=== PATIENT | female | born 1940 ===

== ENCOUNTER 2016-12-28 20:38 | Emergency (ER) | payer MEDICARE, MEDICAID ==
[2016-12-28 20:38] VITALS: BMI 22.6
[2016-12-28 21:44] LABS: BASO % 0.4 % (0.0-2.0); EOS # 0.1 K/uL (0.0-0.7); EOS % 1.2 % (0.0-4.0); HEMATOCRIT 40.8 % (34.0-47.0); LYMPH # 1.8 K/uL (1.0-4.3); LYMPH % 23.6 % (20.0-40.0); MEAN CELL VOLUME 91.6 fL (81.0-99.0); MEAN CORPUSCULAR HEMOGLOBIN 30.9 pg (27.0-31.0); MEAN CORPUSCULAR HGB CONC 33.8 g/dL (33.0-37.0); MEAN PLATELET VOLUME 10.3 fL (7.2-11.7); MONO # 0.4 K/uL (0.0-0.8); MONO % 5.6 % (0.0-10.0); RED CELL DISTRIBUTION WIDTH 13.7 % (11.5-14.5); WHITE BLOOD COUNT 7.8 K/uL (4.8-10.8)
[2016-12-28 21:46] LABS: ALB/GLOB RATIO 1.2 (1.0-2.1); ALKALINE PHOSPHATASE 48 U/L (38-126); ALT/SGPT 27 U/L (9-52); AST/SGOT 36 U/L (14-36); BILIRUBIN,TOTAL 0.6 mg/dL (0.2-1.3); BLOOD UREA NITROGEN 13 mg/dL (7-17); CALCIUM 9.7 mg/dl (8.6-10.4); CARBON DIOXIDE 27 mmol/L (22-30); CHLORIDE 101 mmol/L (98-107); GFR AFRICAN-AMERICAN > 60; GLUCOSE,RANDOM 161 mg/dL (65-105); SODIUM 144 mmol/L (132-148)
[2016-12-28 21:50] LABS: POTASSIUM 5.1 mmol/L (3.6-5.2)
--- NOTE | 2016-12-28 22:21 | C.PDOC ---
History Of Present Illness 76 year old female with a Hx of osteoporosis and recently diagnosed with dementia who presents to the ER with a complaint of heaviness to the left arm, associated with a generalized headache for the last 3 days. Patient state the headache has improved since yesterday; however, she began vomiting today which prompted ER visit. Patient reports she has "liquid" accumulating in her abdomen over the past 5 years, she does not know what it is and has never had it checked out. Denies abdominal pain, chest pain, difficulty breathing, or fever. Time Seen by Provider: 12/28/16 21:58 Chief Complaint (Nursing): Abdominal Pain History Per: Patient History/Exam Limitations: no limitations Onset/Duration Of Symptoms: Days Current Symptoms Are (Timing): Still Present Radiation Of Pain To:: None Associated Symptoms: Vomiting. denies: Fever, Chest Pain Exacerbating Factors: None Alleviating Factors: None Recent travel outside of the [place]: No Abnormal Vaginal Bleeding: No Past Medical History Reviewed: Historical Data, Nursing Documentation, Vital Signs Vital Signs: Last Vital Signs Temp 98.3 F 12/28/16 20:57 Pulse 83 12/28/16 20:57 Resp 20 12/28/16 20:57 BP 187/74 H 12/28/16 20:57 Pulse Ox 98 12/28/16 23:58 - Medical History PMH: HTN, Hypercholesterolemia Surgical History: No Surg Hx Family History: States: Unknown Family Hx - Social History Hx Alcohol Use: No Hx Substance Use: No - Immunization History Hx Tetanus Toxoid Vaccination: No Hx Influenza Vaccination: No Hx Pneumococcal Vaccination: No Review Of Systems Constitutional: Positive for: Weakness. Negative for: Fever Cardiovascular: Negative for: Chest Pain Respiratory: Negative for: Shortness of Breath, Wheezing Gastrointestinal: Negative for: Abdominal Pain Neurological: Positive for: Headache Physical Exam - Physical Exam Appears: Non-toxic, No Acute Distress, Other (Speaking in complete sentences) Skin: Normal Color, Warm, Dry Head: Atraumatic, Normacephalic Eye(s): bilateral: Normal Inspection, PERRL, EOMI Oral Mucosa: Moist Chest: Symmetrical, No Tenderness Cardiovascular: Rhythm Regular, No Murmur Respiratory: Normal Breath Sounds, No Rales, No Rhonchi, No Wheezing Gastrointestinal/Abdominal: Bowel Sounds (Good ), Soft, No Tenderness, Distention (Round, tense with fluid wave) Extremity: Normal ROM (x4) Neurological/Psych: Oriented x3, Normal Speech, Normal Cognition, Normal Motor, Normal Sensation ED Course And Treatment - Laboratory Results Result Diagrams: 12/28/16 21:33 12/28/16 21:33 Lab Interpretation: No Acute Changes O2 Sat by Pulse Oximetry: 98 (Room air) Pulse Ox Interpretation: Normal - Other Rad Obstructive series X-Ray: Interpreted by Me Interpretation: Normal bowel gas pattern with increased stool volume diffusely. No evidence of obstruction or free air. - CT Scan/US CT head Other Rad Studies (CT/US): Read By Radiologist, Radiology Report Reviewed CT/US Interpretation: FINDINGS: Brain: No acute hemorrhage. No significant white matter disease. No cerebral edema. Ageappropriate. atrophic changes. Ventricles: Unremarkable. No ventriculomegaly. Bones/joints: Unremarkable. No acute fracture. Soft tissues: Unremarkable. Sinuses: Unremarkable as visualized. No acute sinusitis. Mastoid air cells: Unremarkable as visualized. No mastoid effusion. IMPRESSION: No acute intracranial pathology is appreciated. Progress Note: Head CT, EKG, abdominal x-ray, and urinalysis ordered. Reevaluation Time: 00:03 Reassessment Condition: Improved Disposition Counseled Patient/Family Regarding: Studies Performed, Diagnosis, Need For Followup - Disposition Referrals: Jose Lees MD [Medical Doctor] - Disposition: HOME/ ROUTINE Disposition Time: 00:08 Condition: STABLE Instructions: High Fiber Diet (ED), Constipation (ED), Acute Headache (ED) Forms: [facility] (Canadian) - Clinical Impression Clinical Impression: Constipation, Headache - Scribe Statement The provider has reviewed the documentation as recorded by the Scribjackelyn Stroud All medical record entries made by the Scribe were at my direction and personally dictated by me. I have reviewed the chart and agree that the record accurately reflects my personal performance of the history, physical exam, medical decision making, and the department course for this patient. I have also personally directed, reviewed, and agree with the discharge instructions and disposition.
[2016-12-28 23:01] LABS: RBC URINE 1 /hpf (0-3); URINE BILIRUBIN NEGATIVE (NEGATIVE); URINE BLOOD NEGATIVE (NEGATIVE); URINE COLOR Straw (YELLOW); URINE GLUCOSE (UA) 1+ mg/dL (Normal); URINE KETONE NEGATIVE (NEGATIVE); URINE LEUKOCYTE ESTERASE NEG Leu/uL (Negative); URINE PROTEIN NEGATIVE (NEGATIVE); URINE UROBILINOGEN NORMAL mg/dL (0.2-1.0)
[2016-12-29 00:15] VITALS: BP 170/71; PULSE 77; RESP 16; TEMP 98.5; O2SAT 100
--- NOTE | 2016-12-29 08:30 | CT ---
PROCEDURE: CT HEAD WITHOUT CONTRAST. HISTORY: headache with heaviness in left arm COMPARISON: None available. TECHNIQUE: Axial computed tomography images were obtained through the head/brain without intravenous contrast. Radiation dose: Total exam DLP = 718.18 mGy-cm. This CT exam was performed using one or more of the following dose reduction techniques: Automated exposure control, adjustment of the mA and/or kV according to patient size, and/or use of iterative reconstruction technique. FINDINGS: HEMORRHAGE: No intracranial hemorrhage. BRAIN: Zhou-white matter differentiation is preserved. There is no mass, mass effect or abnormal extra-axial fluid collection. VENTRICLES: There is mild age-related global parenchymal volume loss and proportionate enlargement of the ventricles and cortical sulci. CALVARIUM: The skull base and calvarium are normal. PARANASAL SINUSES: Predominantly clear. MASTOID AIR CELLS: Predominantly clear. OTHER FINDINGS: None. IMPRESSION: No acute intracranial abnormality. If there is a persistent focal neurologic deficit and an ongoing clinical concern for acute infarction, an MRI of the brain without intravenous contrast would be a more sensitive modality for evaluation of hyperacute/acute ischemic infarction. A preliminary report was provided by [facility].
--- NOTE | 2016-12-29 08:46 | RAD ---
PROCEDURE: Radiographs of the chest and abdomen (obstructive series) HISTORY: vomiting COMPARISON: No prior. TECHNIQUE: AP radiograph of the chest, with upright and supine radiographs of the abdomen. FINDINGS: CHEST: Lungs: Clear. Cardiovascular: Normal size heart. No pulmonary vascular congestion. Pleura: No pleural fluid. No pneumothorax. Other findings: None. ABDOMEN AND PELVIS: Bowel: Right colonic stool retention. No evidence of mechanical obstruction. Free air: None. Bones: L4-5 right-sided lumbar marginal spondylosis, endplate sclerosis with disc space narrowing Other findings: Right upper quadrant cholecystectomy clips IMPRESSION: Right colonic stool retention No evidence of mechanical bowel obstruction.
== END 2016-12-29 00:13 | disposition home or self-care (01) ==
LOC: C.ER 20:38
DX: K59.00 Constipation, unspecified (principal); R51 Headache

== ENCOUNTER 2017-01-30 06:21 | Day surgery (SDC) | payer MEDICARE, MEDICAID ==
[2017-01-30] MEDS ORDERED: ceFAZolin IV 1 gm in Dextrose 1 GM/50 ML BAG IVPB ONE (07:31)
[2017-01-30] MEDS ORDERED: Lidocaine 1% Inj (20ml) ONE (07:31)
[2017-01-30] MEDS ORDERED: Bupivacaine HCl 0.5% PF (10 ml) Inj ONE (07:31)
[2017-01-30] MEDS ORDERED: Bacitracin Ointment 30 GM TUBE ONE (07:31)
[2017-01-30] MEDS ORDERED: Midazolam 2 MG/2 ML VIAL ONE (07:47)
[2017-01-30] MEDS ORDERED: Propofol 10 mg/ml Inj (20 ML) ONE (07:47)
[2017-01-30] MEDS ORDERED: Lactated Ringer's 1,000 ML IV ONE ×2 (07:50→11:10)
[2017-01-30] MEDS ORDERED: Lidocaine Hydrochloride 5 ML INJ ONE (08:05)
[2017-01-30] MEDS ORDERED: HYDROmorphone 0.5 mg/0.5 ml ISec IVP PRN (09:10)
[2017-01-30] MEDS ORDERED: Dexamethasone 4 mg/1 ml ONE (09:11)
[2017-01-30] MEDS ORDERED: Bupivacaine 0.5% Inj(30mL) ONE (09:12)
[2017-01-30] MEDS ORDERED: Oxycodone/Acetaminophen 5/325 mg Tab PO PRN (09:29)
--- NOTE | 2017-01-30 09:35 | PCM.SURG1 ---
Surgeon's Initial Post Op Note - Surgeon's Notes Surgeon: Dr. Acosta Insurance Commissioner: Dr. Neto Robbins, PGY1, Dr. Darby House, PGY2 Type of Anesthesia: IV Sedation, Local Anesthesia Administered By: Dr. Ortega Pre-Operative Diagnosis: Painful hammertoes of digits 2-4, left foot Operative Findings: See dictation report. M- 4-0 vicryl, 4-0 nylon. I- Pre-op : 13 cc 1:1 lidocaine 1% plain, marcaine 0.5% plain. Post-op: 9 cc 0.5% marcaine plain w/ 1 cc decadron Post-Operative Diagnosis: Same Operation Performed: Arthroplasty of left 2nd PIPJ, 3rd DIPJ, 4th PIPJ and DIPJ Specimen/Specimens Removed: Left 2nd PIPJ, 3rd DIPJ, 4th PIPJ and DIPJ Estimated Blood Loss: EBL {In ML}: 5 Blood Products Given: N/A Drains Used: No Drains Post-Op Condition: Good Date of Surgery/Procedure: 01/30/17 Time of Surgery/Procedure: 09:37
[2017-01-30 11:40] VITALS: O2SAT 96
[2017-01-30 12:29] VITALS: BP 148/51; PULSE 67; RESP 20; TEMP 97.7
--- NOTE | 2017-02-01 09:48 | OP ---
PROCEDURE DATE: 01/30/2017 PREOPERATIVE DIAGNOSIS: Painful hemorrhage of the digits 2 through 4 with mallet toe formation left foot. POSTOPERATIVE DIAGNOSIS: Painful hemorrhage of the digits 2 through 4 with mallet toe formation left foot. PROCEDURES: 1. Arthroplasty of distal interphalangeal joint and proximal interphalangeal joint of left 4th digit. 2. Arthroplasty of distal interphalangeal joint of left 3rd digit. 3. Arthroplasty of proximal interphalangeal joint of left 2nd digit. SURGEON: ASYA Acosta HEAD OF SALES PROMOTION: Dr. Neto Robbins, PGY-1, Dr. Dobson, PGY-2. ANESTHESIOLOGIST: MD Jordan TYPE OF ANESTHESIA: IV sedation with local. INDICATIONS: The patient is a 76-year-old female with the above diagnoses. The patient has exhausted all conservative treatment at this time and now requires surgical intervention. The patient signed the consent after careful explanation of risks, benefits, complications, and alternatives for surgical procedure. No guarantees were given nor implied. NPO status was confirmed prior to taking the patient to the OR. PREPARATION: The patient was brought into the operating room and placed on the operating room table in a supine position. Timeout was performed for identification of the correct patient and procedure. After induction of IV sedation, the patient received a total of 13 mL of 1:1 mixture of 0.5% Marcaine plain and 1% lidocaine plain in a local block fashion to the bases of digits 2, 3 and 4 of the left foot. The left lower extremity was then prepped and draped in normal sterile manner and the procedure began. Pneumatic tourniquet at a pressure setting of 215 mmHg was then inflated and the procedure was began. DESCRIPTION OF PROCEDURE: 1. Using a #15 blade, a transverse incision was made down to below the level of subcutaneous tissue at the level of the distal interphalangeal joint of the 4th digit. The extensor digitorum longus tendon was then identified, transected transversely and from the underlying soft tissue structures in a proximal direction with a #15 blade. The same blade was then used to dissect all soft tissue off of the head of the proximal phalanx until was able to be adequately exposed to the incision site. At this time, using [employer]Brown pickups and an oscillating saw on power, the distal head of the middle phalanx was excised and removed from the surgical field. The bone specimen was sent to pathology for examination. The manual bone rasp was then used to smooth down any jagged bone edges that have remained at the distal end of the middle phalanx. The incision site was then flushed with copious amount of sterile saline. The extensor digitorum longus tendon was then reapproximated using 4-0 Vicryl. All subcutaneous tissue was anatomically reapproximated using 4-0 Vicryl and all skin edges of the incision sites were reapproximated in normal anatomical alignment using 4-0 nylon. Attention was then turned to the 4th proximal interphalangeal joint. Using a #15 blade, a derotational elliptical incision was made down to the level of the subcutaneous tissue at the level of proximal interphalangeal joint of the 4th digit. The extensor digitorum longus tendon was then identified, transected transversely and from the underlying soft tissue structures in a proximal direction with a #15 blade. The same blade was then used to dissect all soft tissue off of the head of the proximal phalanx until it was able to be adequately exposed to the incision site. At this time, using [employer]Brown pickups and an oscillating saw on power, the distal head of the proximal phalanx was excised and removed from the surgical field. The bone specimen was sent to pathology for examination. A manual bone rasp was then used to smooth down any jagged bone edges that may have remained at the distal end of the proximal phalanx. The incision site was flushed with copious amounts of sterile saline. The extensor digitorum longus tendon was then reapproximated using 4-0 Vicryl. All subcutaneous tissue was anatomically reapproximated using 4-0 Vicryl and all skin edges of the incision sites were reapproximated in anatomical alignment using 4-0 nylon. 2. Using a #15 blade, a transverse incision was made down to below the level of the subcutaneous tissue at the level of the distal interphalangeal joint of the third digit. The extensor digitorum longus tendon was then identified and transected transversely and from the underlying soft tissue structures in a proximal direction with a #15 blade. The same blade was then used to dissect all soft tissue off the head of the middle phalanx until it was able to be adequately exposed to the incision site. At this time, using Adson-Brown pickups and an oscillating saw on power, the distal head of the middle phalanx was excised and removed from the surgical field. The bone specimen was sent to pathology for examination. A manual bone rasp was then used to smooth down any jagged bone edges that may have remained at the distal end of the middle phalanx. The incision site was flushed with copious amounts of sterile saline. The extensor digitorum longus tendon was then reapproximated using 4-0 Vicryl. All subcutaneous tissue was anatomically reapproximated using 4-0 Vicryl and all skin edges of the incision site were reapproximated in normal anatomical alignment using 4-0 nylon. 3. Using a #15 blade, a longitudinal incision was made down to below the level of the subcutaneous tissue at the level of the proximal interphalangeal joint of the 2nd digit. The extensor digitorum longus tendon was then identified, transected transversely and from the underlying soft tissue structures in a proximal direction with a #15 blade. The same blade was then used to dissect all soft tissue off the head of the proximal phalanx until I was able to be adequately exposed to the incision site. At this time, using [employer] pickups and an oscillating saw on power, the distal head of the proximal phalanx was excised and removed from the surgical field. Bone specimen was sent to pathology for examination. A manual bone rasp was then used to smooth down any jagged bone edges that may have remained at the distal end of the proximal phalanx. The incision site was flushed with copious amounts of sterile saline. The extensor digitorum longus tendon was then reapproximated using 4-0 Vicryl. All subcutaneous tissue was anatomically reapproximated using 4-0 Vicryl and all skin edges at the incision site were reapproximated in normal anatomical alignment using 4-0 nylon. The plantar aspect of the patient's left foot was then manually loaded to stimulate weightbearing and it was noted that digits 2 to 4,which clinically were noted to be mallet toes with distal tips bearing weight and during ambulation were now in a rectus position with the plantar distal luiz sparing the majority of weight instead of the distal aspects of the digits. A 10 mL of 9:1 mixture of 0.5% Marcaine plain and dexamethasone were then injected into the proximal bases of the digits 2 to 4. All incision sites were then dressed with bacitracin ointment, Adaptic gauze, Kerlix and Rizwan. POSTOPERATIVE CONDITION: The patient tolerated the anesthesia and procedure well and was escorted to the recovery room with vital signs stable and neurovascular status intact to the left lower extremity. The patient is to remain nonweightbearing to left lower extremity. The patient will follow up with Dr. Acosta in his office in 1 week. Neto Robbins DPM Dominguez Acosta DPM.
== END 2017-01-30 12:05 | disposition home or self-care (01) ==
LOC: C.SDS 06:21
PROVIDERS: ATTEND Podiatrist Foot & Ankle Surgery
DX: M20.42 Other hammer toe(s) (acquired), left foot (principal)
CPT/HCPCS: 28285; 82948; 88305; 88311; J0690; J1100; J2250; J2704; J3010; J7120

== ENCOUNTER 2017-02-09 21:49 | Inpatient (IN) | payer MEDICARE, MEDICAID ==
[2017-02-09 21:50] VITALS: BMI 22.6
[2017-02-09] MEDS ORDERED: MethylPREDNISolone 40 mg Vial IVP STA (22:21)
--- NOTE | 2017-02-09 22:21 | C.PDOC ---
History Of Present Illness 76 year old female, with PMHx of Dementia, presents to the ED for evaluation of new onset of tongue swelling which began today. Patient denies shortness of breath, difficulty with swallowing, rash, or itchiness. Patient is taking Losartan as prescribed. Additional history limited due to patient's Dementia. LIMITED DUE TO DEMENTIA, POOR HISTORIAN NEW ONSET TONGUE SWELLING TODAY. NO SOB, DIFF SWALLOWING, RASH, ITCH ON LOSARTAN. EXAM MILD DIST NONTOXIC HEENT +MOD ANGIOEDEMA TONGUE NO DROOL STRIDOR NECK SUPPLE LUNGS CTA B/L NO W/R/R NO HIVES REMAINDER NEG Time Seen by Provider: 02/09/17 22:11 Chief Complaint (Nursing): ENT Problem History Per: Patient History/Exam Limitations: clinical condition (dementia) Onset/Duration Of Symptoms: Hrs, Sudden Onset Current Symptoms Are (Timing): Still Present Additional History Per: Patient Past Medical History Reviewed: Historical Data, Nursing Documentation, Vital Signs Vital Signs: Last Vital Signs Temp 98.1 F 02/09/17 21:55 Pulse 72 02/09/17 23:47 Resp 14 02/09/17 23:47 BP 169/75 H 02/09/17 23:47 Pulse Ox 95 02/10/17 00:51 - Medical History PMH: HTN, Hypercholesterolemia, Osteoporosis Denies: Chronic Kidney Disease Surgical History: No Surg Hx Family History: States: Unknown Family Hx - Social History Hx Alcohol Use: No Hx Substance Use: No - Immunization History Hx Tetanus Toxoid Vaccination: No Hx Influenza Vaccination: No Hx Pneumococcal Vaccination: No Review Of Systems Review Of Systems: ROS cannot be obtained secondary to pt's inabilty to answer questions. (POOR HISTORIAN) Physical Exam - Physical Exam Appears: No Acute Distress, Other (mild distress ) Skin: Normal Color, Warm, Dry, No Rash (hives ) Head: Atraumatic, Normacephalic Eye(s): bilateral: Normal Inspection Ear(s): Bilateral: Normal Nose: Normal, No Discharge Oral Mucosa: Moist Tongue: Other (moderate angioedema. no drooling or stridor ) Throat: Normal, No Erythema, No Exudate, No Drooling Neck: Supple Chest: Symmetrical, No Deformity, No Tenderness Cardiovascular: Rhythm Regular, No Murmur Respiratory: Normal Breath Sounds, No Rales, No Rhonchi, No Wheezing, Other ( clear to auscultation bilaterally) Extremity: Normal ROM, Capillary Refill (less than 2 seconds ) Neurological/Psych: Oriented x3, Normal Speech, Normal Cognition Gait: Steady ED Course And Treatment - Laboratory Results Result Diagrams: 02/09/17 22:48 02/09/17 22:48 ECG: Interpreted By Me ECG Rhythm: Sinus Rhythm ECG Interpretation: Normal Rate From EC O2 Sat by Pulse Oximetry: 95 (on RA) Pulse Ox Interpretation: Normal - Radiology CXR: Interpreted by Me, Viewed By Me CXR Interpretation: Yes: Other (negative ) Progress Note: Labs, EKG, CXR ordered and reviewed. Pepcid IVP, Solu-Medrol IVP and IV Fluids administered. Progress - Re-Evaluation Re-evaluation Note: 02/09/17 22:51 PS HAS NOT TAKEN LOSARTAN X 2-3 WEEKS. EXAM UNCH VSS. 02/10/17 00:10 +NEW ONSET BLISTER L SIDE OF TONGUE, BASE OF TONGUE. LESS EDEMA TONGUE. VSS. NO DROOL 02/10/17 00:10 D/W DR CANTOR WILL EVAL FOR ICU PENDING CALLBACK DR ROWE 02/10/17 00:51 D/W JAE WILL ADMIT 02/10/17 00:59 S/P ICU EVAL WILL ADMIT - Data Reviewed Data Reviewed: Lab, Diagnostic imaging, Old records - Critical Care Citical Care: Excluding Proc Time Critical Care Time: 90 minutes Disposition Counseled Patient/Family Regarding: Studies Performed, Diagnosis - Disposition Disposition: HOSPITALIZED Disposition Time: 00:59 Condition: STABLE Forms: [facility] (Qatari) - POA Present On Arrival: None - Clinical Impression Clinical Impression: Angioedema - Scribe Statement The provider has reviewed the documentation as recorded by the Scribe (Nakia Rivera) Provider Attestation: All medical record entries made by the Scribe were at my direction and personally dictated by me. I have reviewed the chart and agree that the record accurately reflects my personal performance of the history, physical exam, medical decision making, and the department course for this patient. I have also personally directed, reviewed, and agree with the discharge instructions and disposition. Decision To Admit - Pt Status Changed To: Hospital Disposition Of: Inpatient - Admit Certification Admit to Inpatient:: After my assessment, the patient will require hospitalization for at least two midnights. This is because of the severity of symptoms shown, intensity of services needed, and/or the medical risk in this patient being treated as an outpatient. - InPatient: Physician Admission Certification:: SEE NOTE - . Bed Request Type: ICU Admitting Physician: Omkar Cervantes Patient Diagnosis: Angioedema
[2017-02-09] MEDS ORDERED: Sodium Chloride 0.9% 1,000 ML IV ONE (22:22)
[2017-02-09] MEDS ORDERED: MethylPREDNISolone 40 mg Vial ONE (22:28)
[2017-02-09] MEDS ORDERED: Sodium Chloride 0.9% 1,000 ML ONE (22:29)
[2017-02-09 22:51] LABS: BASO # 0.1 K/uL (0.0-0.2); BASO % 0.8 % (0.0-2.0); EOS # 0.2 K/uL (0.0-0.7); EOS % 2.1 % (0.0-4.0); HEMATOCRIT 40.5 % (34.0-47.0); LYMPH # 2.8 K/uL (1.0-4.3); LYMPH % 30.8 % (20.0-40.0); MEAN CORPUSCULAR HGB CONC 33.7 g/dL (33.0-37.0); MEAN PLATELET VOLUME 10.3 fL (7.2-11.7); MONO # 0.9 K/uL (0.0-0.8); MONO % 10.1 % (0.0-10.0)
[2017-02-09 22:58] LABS: CHLORIDE 100 mmol/L (98-107)
[2017-02-09 22:59] LABS: POTASSIUM 4.4 mmol/L (3.6-5.2); SODIUM 137 mmol/L (132-148)
[2017-02-09 23:01] LABS: GFR AFRICAN-AMERICAN > 60
[2017-02-09 23:02] LABS: BLOOD UREA NITROGEN 20 mg/dL (7-17); CALCIUM 8.8 mg/dl (8.6-10.4); CARBON DIOXIDE 24 mmol/L (22-30); GLUCOSE,RANDOM 108 mg/dL (65-105)
--- NOTE | 2017-02-10 03:48 | CP.PCM.CON ---
History of Present Illness - History of Present Illness History of Present Illness: 76 F with h/o HTN on losartan, dementia, h/o recent left foot surg presented to the ER with c/o swelling in tongue, difficulty in talking, swallowing started around 8pm. Patient when came to ER had significant difficulty in speaking but it improved, swelling in the tounge, edges, and floor of the mouth was noted. ICU eval called for suspected angioedema. Patient denied itching, urticaria, mentions taking ibuprofen for the recent surg done in left foot. Patient received solumedrol 80mg iv in ER. PMH as above PSH htn, foot surg Meds noted Allergy with asa c/o dizziness, Losartan mention probably inserted today Family history not contributory Review of Systems - Review of Systems Review of Systems: HPI Past Patient History - Infectious Disease Hx of Infectious Diseases: None - Past Medical History & Family History Past Medical History?: Yes - Past Social History Smoking Status: Never Smoked Alcohol: None Drugs: Denies Home Situation {Lives}: With Family - CARDIAC Hx Hypercholesterolemia: Yes Hx Hypertension: Yes - PULMONARY Hx Respiratory Disorders: No - NEUROLOGICAL Hx Neurological Disorder: Yes Other/Comment: HX: FORGETFULLNESS - HEENT Hx HEENT Problems: Yes Hx Cataracts: Yes (BILAT.) - RENAL Hx Chronic Kidney Disease: No - ENDOCRINE/METABOLIC Hx Endocrine Disorders: Yes Hx Diabetes Mellitus Type 2: Yes - HEMATOLOGICAL/ONCOLOGICAL Hx Blood Disorders: No - INTEGUMENTARY Hx Dermatological Problems: No - MUSCULOSKELETAL/RHEUMATOLOGICAL Hx Falls: Yes (unknown) Hx Osteoporosis: Yes - GASTROINTESTINAL Hx Gastrointestinal Disorders: Yes Hx Liver Failure: Yes ("SLIGHTLY ENLARGED") - GENITOURINARY/GYNECOLOGICAL Hx Genitourinary Disorders: Yes Hx Incontinence: Yes - PSYCHIATRIC Hx Substance Use: No - SURGICAL HISTORY Hx Surgeries: Yes Hx Cataract Extraction: Yes (BILAT.) - ANESTHESIA Hx Anesthesia: No Hx Anesthesia Reactions: Yes (VOMITING) Hx Malignant Hyperthermia: No Meds Allergies/Adverse Reactions: Allergies Allergy/AdvReac Type Severity Reaction Status Date / Time losartan Allergy Severe ANGIOEDEMA Verified 02/10/17 03:02 aspirin Allergy Intermediate NAUSEA Verified 02/09/17 22:01 - Medications Medications: Current Medications Sodium Chloride (Sodium Chloride 0.9%) 1,000 mls @ 100 mls/hr IV .Q10H ONE Stop: 02/10/17 08:21 Last Admin: 02/09/17 22:33 Dose: 100 mls/hr Physical Exam - Additional Findings Additional findings: * HEENT YONI, swelling in the tounge, floor of the mouth felt both from inside and outside felt firm but above the larynx, * Neck no stridor * Chest clear * CVS regular, no gallop or rub * PA soft, nt bs present * Ext no edema * 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 * Skin normal turgor Results - Vital Signs Recent Vital Signs: Last Vital Signs Temp 98 F 02/10/17 02:20 Pulse 73 02/10/17 02:20 Resp 18 02/10/17 02:20 BP 146/60 02/10/17 02:20 Pulse Ox 95 02/10/17 02:20 - Labs Result Diagrams: 02/09/17 22:48 02/09/17 22:48 Labs: Laboratory Results - last 24 hr 02/09/17 02/09/17 22:48 22:48 WBC 9.0 RBC 4.40 Hgb 13.6 Hct 40.5 MCV 92.0 MCH 31.0 MCHC 33.7 RDW 14.0 Plt Count 150 MPV 10.3 Neut % (Auto) 56.2 Lymph % (Auto) 30.8 [place] % (Auto) 10.1 H Eos % (Auto) 2.1 Baso % (Auto) 0.8 Neut # 5.1 Lymph # 2.8 [place] # 0.9 H Eos # 0.2 Baso # 0.1 Sodium 137 Potassium 4.4 Chloride 100 Carbon Dioxide 24 Anion Gap 17 BUN 20 H Creatinine 0.8 Est GFR ( Amer) > 60 Est GFR (Non-Af Amer) > 60 Random Glucose 108 H Calcium 8.8 Assessment & Plan - Assessment and Plan (Free Text) Assessment: * Angioedema of the tongue and floor of the mouth, with recent use of ibuprofen and h/o allergy to ASA, improved since time of presentation, with improvement of the speech. * Recent left foot surg * H/o htn Plan: * Observe in ICU as the extent of the firm swelling close to larynx, neck soft tissue CT * NPO * if swelling increase FFP and prophylactic intubation but observe for now * GI/DVT prophylaxis
[2017-02-10 06:55] LABS: BASO % 0.4 % (0.0-2.0); HEMATOCRIT 42.1 % (34.0-47.0); LYMPH % 10.9 % (20.0-40.0); MEAN CELL VOLUME 91.9 fL (81.0-99.0); MEAN CORPUSCULAR HGB CONC 33.7 g/dL (33.0-37.0); MONO # 0.1 K/uL (0.0-0.8); MONO % 0.6 % (0.0-10.0); RED CELL DISTRIBUTION WIDTH 13.8 % (11.5-14.5); WHITE BLOOD COUNT 8.9 K/uL (4.8-10.8)
[2017-02-10 07:08] LABS: CHLORIDE 103 mmol/L (98-107)
[2017-02-10 07:09] LABS: POTASSIUM 4.5 mmol/L (3.6-5.2); SODIUM 138 mmol/L (132-148)
[2017-02-10 07:11] LABS: ALB/GLOB RATIO 1.3 (1.0-2.1); ALKALINE PHOSPHATASE 53 U/L (38-126); ALT/SGPT 29 U/L (9-52); AST/SGOT 29 U/L (14-36); BILIRUBIN,TOTAL 0.5 mg/dL (0.2-1.3); BLOOD UREA NITROGEN 18 mg/dL (7-17); CARBON DIOXIDE 20 mmol/L (22-30); GFR AFRICAN-AMERICAN > 60; GLUCOSE,RANDOM 174 mg/dL (65-105); PHOSPHOROUS 3.6 mg/dL (2.5-4.5); TOTAL PROTEIN 7.9 g/dL (6.3-8.3)
[2017-02-10 07:12] LABS: MAGNESIUM 1.7 mg/dL (1.6-2.3)
[2017-02-10 08:13] LABS: CHOLESTEROL 195 mg/dL (0-199)
--- NOTE | 2017-02-10 08:21 | RAD ---
PROCEDURE: CHEST RADIOGRAPH, 1 VIEW HISTORY: Shortness of breath COMPARISON: 10/10/2016 FINDINGS: LUNGS: Mild venous congestion. Small nodular density in the right midlung may represent vessel on end. PLEURA: No pneumothorax or pleural fluid seen. CARDIOVASCULAR: Calcification at the aortic knob. OSSEOUS STRUCTURES: No significant abnormalities. VISUALIZED UPPER ABDOMEN: Normal. OTHER FINDINGS: None. IMPRESSION: Mild venous congestion. Small nodular density in the right midlung may represent vessel on end.
[2017-02-10 08:43] LABS: THYROID STIMULATING HORMONE 0.13 mIU/L (0.46-4.68)
--- NOTE | 2017-02-10 09:06 | CT ---
PROCEDURE: CT NECK WITHOUT CONTRAST HISTORY: angioedema COMPARISON: None. TECHNIQUE: CT of the neck without intravenous contrast. Coronal and sagittal reformats generated. Radiation dose: DLP 363.84 mGy-cm This CT exam was performed using one or more of the following dose reduction techniques: Automated exposure control, adjustment of the mA and/or kV according to patient size, and/or use of iterative reconstruction technique. FINDINGS: NASOPHARYNX: Unremarkable. SUPRAHYOID NECK: Unremarkable oropharynx, oral cavity, parapharyngeal space and retropharyngeal space. INFRAHYOID NECK: Asymmetry and obliteration of the left piriform sinus noted. Otherwise unremarkable larynx, hypopharynx, and supraglottic space. Vocal cords intact. MASS: None. GLANDS: Parotid and submandibular glands unremarkable. The thyroid gland is mildly enlarged without evidence of discrete nodule or mass. LYMPH NODES: Normal. No lymphadenopathy. CERVICAL SPINE: No fracture or focal lesion. OTHER FINDINGS: None. IMPRESSION: Suboptimal assessment without IV contrast administration. Asymmetry in the piriform sinus with possible focal mucosal thickening at the left piriform sinus. Mildly enlarged homogeneous thyroid gland without evidence of mass lesion or nodule.
[2017-02-10] MEDS ORDERED: DiphenhydrAMINE 50 mg/ml Inj IVP PRN (09:55)
[2017-02-10] MEDS ORDERED: NAMENDA 28 MG PO SCH (10:00)
[2017-02-10] MEDS ORDERED: MethylPREDNISolone 40 mg Vial IVP ONE (10:00)
--- NOTE | 2017-02-10 10:02 | CP.PCM.PN ---
Subjective - Date & Time of Evaluation Date of Evaluation: 02/10/17 Time of Evaluation: 09:40 - Subjective Subjective: H&P dictated #[id number] Objective - Vital Signs/Intake and Output Vital Signs (last 24 hours): Temp Pulse Resp BP Pulse Ox 98 F 86 13 168/72 H 100 02/10/17 08:00 02/10/17 09:40 02/10/17 09:40 02/10/17 09:00 02/10/17 09:40 Intake and Output: 02/10/17 02/10/17 06:59 18:59 Intake Total 500 300 Output Total 700 300 Balance -200 0 - Medications Medications: Current Medications Diphenhydramine HCl (Benadryl) 25 mg IVP Q8H PRN PRN Reason: Itching / Pruritus Folic Acid (Folic Acid) 1 mg PO DAILY [facility] Home Med (Multivitamin/Iron/Folic Acid [Multi-Day Plus Iron Tablet]) 1 each PO DAILY [facility] Home Med (Namenda Xr) 28 mg PO DAILY [facility] Home Med (Pravastatin Sodium [Pravastatin Sodium]) 40 mg PO DAILY [facility] Insulin Human Regular (Novolin R) 1 unit SC ACHS [facility] PRN Reason: Protocol Pantoprazole Sodium (Protonix Inj) 40 mg IVP DAILY [facility] - Labs Labs: 02/10/17 06:50 02/10/17 06:50
[2017-02-10] MEDS: Folic Acid/Ascorbic Acid/Ferrous Sulfate 1 Tab PO SCH (11:30)
[2017-02-10] MEDS: (Novolin R) Insulin Human Regular 100 units/ml vial SC SCH ×4 (11:30→21:44)
[2017-02-10] MEDS: Metoprolol Succinate 25 mg XL Tab PO SCH (11:32)
[2017-02-10 12:37] LABS: RBC URINE 9 /hpf (0-3); URINE BILIRUBIN NEGATIVE (NEGATIVE); URINE BLOOD 1+ (NEGATIVE); URINE COLOR Straw (YELLOW); URINE GLUCOSE (UA) 2+ mg/dL (Normal); URINE KETONE NEGATIVE (NEGATIVE); URINE LEUKOCYTE ESTERASE NEG Leu/uL (Negative); URINE PROTEIN NEGATIVE (NEGATIVE); URINE UROBILINOGEN NORMAL mg/dL (0.2-1.0); WBC URINE < 1 /hpf (0-5)
[2017-02-10 16:45] VITALS: RESP 20
--- NOTE | 2017-02-10 20:14 | HP ---
CHIEF COMPLAINT: Difficulty swallowing with complaints of swelling on the tongue and lip. HISTORY OF PRESENT ILLNESS: Ms. Farley is a 76-year-old female with past medical history of diabetes mellitus, hypertension, hyperlipidemia, questionable liver problems, Alzheimer's dementia, left foot surgery for questionable etiology, following with Dr. Acosta primary care physician, came into the ED with complaints of difficulty swallowing and talking and swelling of the tongue and lip, which started around 8 p.m. As per the patient, she had some fish soup yesterday and had mashed potatoes around 7 p.m. for dinner and then after an hour, she started noticing swelling of the tongue, which made her come to the ED. In the ED, the patient does not able to speak in full sentences, because of the difficulty from the swelling and the patient was given IV Solu-Medrol and the patient is being admitted to ICU for monitoring of her respiratory status. When I examined, she is feeling much better. Denies any headache, dizziness. Denies any chest pain, shortness of breath, or wheezing. Denies any nausea, vomiting, abdominal pain, diarrhea or constipation, able to swallow better. Denies any swelling, talking in full sentences. Denies any urinary complaints. Denies any leg pains or leg cramps. Denies any other neurologic symptoms. She is on losartan at home, unclear if she took her losartan yesterday or not, but the patient is ALLERGIC TO ASPIRIN and she was given a week ago ibuprofen for her left foot surgery, which she took on Monday night. She did not notice any symptoms immediately and denies any other complaints at the present time. PAST MEDICAL HISTORY: As described; hypertension, hyperlipidemia, diabetes mellitus, liver problems, and Alzheimer's dementia. PAST SURGICAL HISTORY: Eye surgeries and left foot surgery done recently in December. FAMILY HISTORY: Mother and father from natural cause, 2 of her sons have liver problems. PERSONAL HISTORY: She is , living alone, having 10 children. SOCIAL HISTORY: Denies smoking, alcohol, or drugs. ALLERGIES: SHE IS ALLERGIC TO ASPIRIN, UNCLEAR ALLERGY FROM LOSARTAN. HOME MEDICATIONS: Include multivitamin, ibuprofen, folic acid, losartan 25 mg daily, Namenda 28 mg p.o. daily, metformin 500 mg p.o. b.i.d., and pravastatin 40 mg p.o. daily. REVIEW OF SYSTEMS: As described in history of present illness. All other systems reviewed and were found to be negative. PHYSICAL EXAMINATION GENERAL: Elderly female, sitting in chair, in no acute distress. VITAL SIGNS: Blood pressure 146/63, pulse 72, respirations 16, temperature 98 degrees Fahrenheit, and O2 sats 99% on room air. HEENT: Pupils are equal, round and reacting to light and accommodation. Extraocular muscles are intact. No icterus. No pallor. No oral thrush. No pharyngeal congestion. No swelling of the base of the tongue, lower lip is slightly hyperemic and slightly swollen. NECK: Supple. No JVD. LUNGS: Bilateral vesicular breath sounds. No wheezing. No rhonchi. CARDIOVASCULAR: S1 and S2 present, regular. ABDOMEN: Soft, nontender. Bowel sounds present. No guarding, no rigidity. No rebound tenderness noted. CRANIAL NERVE SYSTEM: Alert, awake, and oriented x3. No focal deficits noted. EXTREMITIES: No edema. Palpable peripheral pulses. LABORATORY DATA: Labs done from ED; WBC 9.0, hemoglobin 13.6, hematocrit 40.5, and platelets 150. Sodium 137, potassium 4.4, chloride 100, bicarbonate 24, BUN 20, creatinine 0.8, glucose 108, calcium 8.8. CT of the neck shows asymmetry in the pyriform sinus with possible focal mucosal thickening in the left pyriform sinus, mild enlarged homogenous thyroid gland without evidence of mass lesion or nodule. Chest x-ray; mild venous congestion, small nodular density in the right mid lung, may represent . ASSESSMENT: An elderly female with history of diabetes, hypertension, hyperlipidemia, Alzheimer's dementia, liver problems, admitted for possible angioedema of the tongue from questionable etiology, rule out secondary to ibuprofen versus losartan versus food. She had some fish soup, which included salmon. PLAN: The patient received Solu-Medrol with improved symptoms. We will continue Solu-Medrol 40 mg IV one dose today, Benadryl as needed. We will start clear liquids and advanced diet as tolerated. Her blood pressure is high, we will hold losartan, start her on metoprolol. We will restart her home medications. We will give Pepcid for GI prophylaxis. Continue with her Namenda. We will discuss with the patient's daughter, who is taking care of her regarding her medication. Omkar Cervantes MD [facility] # [phone]
[2017-02-11 07:31] VITALS: BP 145/73; PULSE 60; TEMP 97.6; O2SAT 97
[2017-02-11] MEDS: (Novolin R) Insulin Human Regular 100 units/ml vial SC SCH ×2 (07:35→11:58)
[2017-02-11] MEDS ORDERED: Oxycodone/Acetaminophen 5/325 mg Tab PO PRN (09:22)
--- NOTE | 2017-02-11 09:26 | CP.PCM.PN ---
Subjective - Date & Time of Evaluation Date of Evaluation: 02/11/17 Time of Evaluation: 09:10 - Subjective Subjective: Discharge summary dictated #[id number] Objective - Vital Signs/Intake and Output Vital Signs (last 24 hours): Temp Pulse Resp BP Pulse Ox 97.6 F 60 20 145/73 97 02/11/17 07:29 02/11/17 07:29 02/11/17 07:29 02/11/17 07:29 02/11/17 07:29 Intake and Output: 02/11/17 02/11/17 06:59 18:59 Intake Total 240 Balance 240 - Medications Medications: Current Medications Acetaminophen (Tylenol 325mg Tab) 650 mg PO Q6 PRN PRN Reason: Pain, Mild (1-3) Last Admin: 02/11/17 06:21 Dose: 650 mg Ascorbic Ac/Ferrous Sulf/Folic Acid (Iberet-Folic 500) 1 ter PO DAILY [facility] Last Admin: 02/10/17 11:30 Dose: 1 ter Diphenhydramine HCl (Benadryl) 25 mg IVP Q8H PRN PRN Reason: Itching / Pruritus Folic Acid (Folic Acid) 1 mg PO DAILY [facility] Last Admin: 02/10/17 10:21 Dose: 1 mg Heparin Sodium (Porcine) (Heparin) 5,000 units SC Q8 [facility] Last Admin: 02/11/17 06:19 Dose: 5,000 units Home Med (Patient's Own Medication) 1 tab PO DAILY [facility] Insulin Human Regular (Novolin R) 0 unit SC ACHS [facility] PRN Reason: Protocol Last Admin: 02/10/17 21:44 Dose: Not Given Metoprolol Succinate (Toprol Xl) 25 mg PO DAILY [facility] Last Admin: 02/10/17 11:32 Dose: 25 mg Oxycodone/Acetaminophen (Percocet 5/325 Mg Tab) 1 tab PO Q6H PRN PRN Reason: Pain, severe (8-10) Stop: 02/14/17 09:23 Pantoprazole Sodium (Protonix Inj) 40 mg IVP DAILY [facility] Last Admin: 02/10/17 10:21 Dose: 40 mg Prednisone (Prednisone Tab) 20 mg PO DAILY [facility] Rosuvastatin Calcium (Crestor) 5 mg PO HS [facility] Last Admin: 02/10/17 21:44 Dose: 5 mg - Labs Labs: 02/10/17 06:50 02/10/17 06:50
[2017-02-11] MEDS: Metoprolol Succinate 25 mg XL Tab PO SCH (09:35)
[2017-02-11] MEDS ORDERED: NAMENDA XR 28MG PO SCH (10:00)
[2017-02-11] MEDS: Folic Acid/Ascorbic Acid/Ferrous Sulfate 1 Tab PO SCH (10:30)
[2017-02-11 11:19] LABS: BASO # 0.1 K/uL (0.0-0.2); BASO % 0.3 % (0.0-2.0); EOS # 0.1 K/uL (0.0-0.7); EOS % 0.6 % (0.0-4.0); HEMATOCRIT 39.6 % (34.0-47.0); LYMPH # 4.4 K/uL (1.0-4.3); MEAN CELL VOLUME 92.4 fL (81.0-99.0); MEAN CORPUSCULAR HGB CONC 33.5 g/dL (33.0-37.0); MEAN PLATELET VOLUME 11.3 fL (7.2-11.7); MONO % 5.6 % (0.0-10.0); RED CELL DISTRIBUTION WIDTH 13.8 % (11.5-14.5)
[2017-02-11 11:21] LABS: WHITE BLOOD COUNT 17.7 K/uL (4.8-10.8)
[2017-02-11 11:40] LABS: CHLORIDE 105 mmol/L (98-107)
[2017-02-11 11:41] LABS: POTASSIUM 3.7 mmol/L (3.6-5.2); SODIUM 137 mmol/L (132-148)
[2017-02-11 11:43] LABS: ALB/GLOB RATIO 1.1 (1.0-2.1); AST/SGOT 25 U/L (14-36); BILIRUBIN,TOTAL 0.2 mg/dL (0.2-1.3); BLOOD UREA NITROGEN 26 mg/dL (7-17); CARBON DIOXIDE 22 mmol/L (22-30); GFR AFRICAN-AMERICAN > 60; TOTAL PROTEIN 7.5 g/dL (6.3-8.3)
[2017-02-11 11:44] LABS: ALKALINE PHOSPHATASE 55 U/L (38-126); ALT/SGPT 34 U/L (9-52); CALCIUM 8.7 mg/dl (8.6-10.4); GLUCOSE,RANDOM 138 mg/dL (65-105)
--- NOTE | 2017-02-12 01:45 | DS ---
DISCHARGE DIAGNOSES: Angioedema of the tongue, unclear whether it is allergy secondary to ibuprofen or losartan or sea food; hypertension; hyperlipidemia; diabetes mellitus; liver problems; Alzheimer's dementia. HISTORY OF PRESENT ILLNESS: Ms. Farley is a 76-year-old female with past medical history of hypertension, hyperlipidemia, diabetes mellitus, questionable liver problems, Alzheimer's dementia, admitted for swelling of the neck, difficulty swallowing and difficulty speaking after she ate some fish soup the day that she was admitted and took ibuprofen the night before and she has been on losartan for her high blood pressure. In the ED, the patient was given Solu-Medrol and the patient was admitted to ICU for further observation. Today, the patient is feeling much better. Denies any headache or dizziness. Denies any difficulty swallowing. Denies any throat swelling or difficulty in speaking. Able to tolerate p.o. feeds. Denies any chest pain, shortness of breath or wheezing. Denies any nausea, vomiting, abdominal pain, diarrhea or constipation. Denies any urinary complaints. Denies any leg pains or leg cramps. All other systems reviewed. She is complaining of left toe pain from foot surgery few weeks ago. PHYSICAL EXAMINATION: GENERAL: Elderly female, lying in bed, no acute distress. VITAL SIGNS: Blood pressure 145/73, pulse 60, respirations 20, temperature 97.6 degrees Fahrenheit and O2 sats 97% on room air. HEENT: Pupils are equal, round and reacting to light and accommodation. Extraocular muscles are intact. No icterus. No pallor. No oral thrush. No pharyngeal congestion. NECK: Supple. No JVD. No thyromegaly. CHEST: Moving equally bilaterally on respiration. LUNGS: Bilateral vesicular breath sounds. No wheezing. No rhonchi. CARDIOVASCULAR: S1 and S2 present, regular. ABDOMEN: Soft, nontender. Bowel sounds present. No guarding. No rigidity. No rebound tenderness noted. CRANIAL NERVE SYSTEM: Alert, awake and oriented x3. No focal deficits noted. EXTREMITIES: Left foot 3 toes with sutures in place. No erythema. No oozing noted. LABORATORY DATA: Labs done from today, sodium 137, potassium 3.7, chloride 105, bicarbonate 22, BUN 26, creatinine 0.7, glucose 140 and calcium 8.7. LFTs within normal limits. UA: Specific gravity 1.008, pH of 6.0, glucose 2+, blood 1+, rbc 9. WBC 17.7, hemoglobin 13.3, hematocrit 39.6, platelets 149. Yesterday, WBC 8.9, hemoglobin 14.2, hematocrit 42.[address] of the neck soft tissue shows asymmetry in the pyriform sinus with possible focal mucosal thickening at the left pyriform sinus, mildly enlarged homogenous thyroid gland without evidence of mass, lesion or nodule. HOSPITAL COURSE: The patient was admitted to ICU for monitoring of her respiratory status. The patient was given Solu-Medrol, continued with Solu-Medrol yesterday. Her symptoms improved. The patient is able to swallow and able to get back to regular diet. The patient is otherwise hemodynamically stable, but complaining of left toe pain where she had surgery done. The patient was advised to not to take any ibuprofen, any losartan or any sea food. The patient's blood pressure medication was switched to Norvasc 5 mg daily, advised to continue with her other medications. Percocet was given this morning with which her pain improved, advised the patient to continue take Percocet for pain and resume all other home medications. Advised the patient to return to the ED if any swelling or any other symptoms reoccur. DISCHARGE MEDICATIONS: Folic acid 1 mg daily, metoprolol XL 25 mg p.o. daily, multivitamin 1 tab daily, Percocet 1 tab p.o. q. 6 p.r.n. for pain, pravastatin 40 mg daily, prednisone 20 mg p.o. daily for 2 days and 10 mg p.o. daily for 2 days and then discontinue. DISCHARGE DIET: Heart healthy, low cholesterol, low sodium, low carbohydrate diet. ACTIVITY: As tolerated. DISCHARGE INSTRUCTIONS: Follow up with PMD, follow up with podiatry. The patient needs repeat CBC and Chem-7, has elevated WBC from this morning, probably secondary to steroids as there were no other signs of infection. Advised the patient to follow up with PMD for further or repeat of labs. Omkar Cervantes MD
== END 2017-02-11 14:42 | disposition home or self-care (01) | DRG 916 ==
LOC: C.ER 21:49 → C.9E 02-10 01:00 → C.9I 02-10 01:00 → C.3T 02-10 14:15
PROVIDERS: ADMIT Internal Medicine; ATTEND Internal Medicine
DX: T78.3XXA Angioneurotic edema, initial encounter (principal); E11.9 Type 2 diabetes mellitus without complications; G30.9 Alzheimer's disease, unspecified; I10 Essential (primary) hypertension; F02.80 Dementia in other diseases classified elsewhere, unspecified severity, without behavioral disturbance, psychotic disturbance, mood disturbance, and anxiety; E78.5 Hyperlipidemia, unspecified; E78.00 Pure hypercholesterolemia, unspecified; M81.0 Age-related osteoporosis without current pathological fracture; G89.28 Other chronic postprocedural pain; M79.675 Pain in left toe(s); K76.9 Liver disease, unspecified; Z79.84 Long term (current) use of oral hypoglycemic drugs; Z79.899 Other long term (current) drug therapy; Z88.6 Allergy status to analgesic agent; Z98.42 Cataract extraction status, left eye; Z98.41 Cataract extraction status, right eye

== ENCOUNTER 2017-04-22 20:37 | Emergency (ER) | payer MEDICARE, MEDICAID ==
[2017-04-22 20:37] VITALS: BMI 22.6
[2017-04-22 20:58] VITALS: TEMP 98.7
--- NOTE | 2017-04-22 21:38 | C.PDOC ---
History Of Present Illness 76 y/o female with c/o of pain to right ear since yesterday. Patient reports there is a cotton tip stuck in her ear that occurred after cleaning. Patient is also c/o intermittent chronic tingling to her left arm for the past year. Patient denies fever, chills, headache, ear discharge, weakness, numbness. Time Seen by Provider: 04/22/17 21:06 Chief Complaint (Nursing): ENT Problem History Per: Patient History/Exam Limitations: None Onset/Duration Of Symptoms: Hrs Current Symptoms Are (Timing): Still Present Quality (Ear): Foreign Body Quality (Mouth/Throat): Tenderness Severity: None Anticoagulant/Antiplatlet Use?: No Recent Aspirin Use: No Past Medical History Reviewed: Historical Data, Nursing Documentation, Vital Signs Vital Signs: Last Vital Signs Temp 98.7 F 04/22/17 20:54 Pulse 85 04/22/17 22:09 Resp 16 04/22/17 22:09 BP 125/85 04/22/17 22:09 Pulse Ox 97 04/23/17 02:15 - Medical History PMH: HTN, Hypercholesterolemia, Osteoporosis Denies: Chronic Kidney Disease Surgical History: No Surg Hx Family History: States: Unknown Family Hx - Social History Hx Alcohol Use: No Hx Substance Use: No - Immunization History Hx Tetanus Toxoid Vaccination: No Hx Influenza Vaccination: No Hx Pneumococcal Vaccination: No Review Of Systems Constitutional: Negative for: Fever, Chills Eyes: Negative for: Vision Change ENT: Positive for: Ear Pain Neurological: Positive for: Other (intermittent tingling- Lt arm). Negative for : Weakness, Numbness Physical Exam - Physical Exam Appears: Non-toxic, No Acute Distress Skin: Normal Color, Warm, Dry Head: Atraumatic, Normacephalic Ear(s): Left: Normal, Right: Other (foreign body visualized, no periauricular tenderness) Oral Mucosa: Moist Neck: Supple Extremity: Normal ROM, No Pedal Edema, No Calf Tenderness, Capillary Refill (< 2 seconds), No Deformity, No Swelling Extremity: Bilateral: Atraumatic, Normal Color And Temperature Pulses: Left Radial: Normal, Right Radial: Normal Neurological/Psych: Oriented x3, Normal Speech, Normal Cognition, Normal Motor, Normal Sensation Gait: Steady ED Course And Treatment O2 Sat by Pulse Oximetry: 97 (On RA) Pulse Ox Interpretation: Normal Progress Note: Plan: -Tylenol 650 mg PO. Used alligator forceps to remove the foreign body from the right ear canal, after removal the ear canal was erythematous and patient was advised to use ear drops for relief. Disposition Counseled Patient/Family Regarding: Diagnosis, Need For Followup, Rx Given - Disposition Disposition: HOME/ ROUTINE Disposition Time: 21:36 Condition: STABLE Additional Instructions: Take tylenol for pain Use ear drops as directed Return to ER if worse Prescriptions: Neomycin/Polymyxin/Hydrocortis [Cortisporin Otic Susp] 3 - 5 drop TOP TID #1 bottle Instructions: Ear Foreign Body (ED) Forms: [email or web address] (Hebrew) Print Language: SYRIAC - Clinical Impression Clinical Impression: Ear foreign body, Otitis externa of right ear - PA / SOCIAL WORKER / Resident Statement MD/DO has reviewed & agrees with the documentation as recorded. - Scribe Statement The provider has reviewed the documentation as recorded by the Scribe Boo Kruse All medical record entries made by the Scribe were at my direction and personally dictated by me. I have reviewed the chart and agree that the record accurately reflects my personal performance of the history, physical exam, medical decision making, and the department course for this patient. I have also personally directed, reviewed, and agree with the discharge instructions and disposition.
[2017-04-22 22:10] VITALS: BP 125/85; PULSE 85; RESP 16
[2017-04-22 22:33] VITALS: O2SAT 97
== END 2017-04-22 22:09 | disposition home or self-care (01) ==
LOC: C.ER 20:37
DX: H60.91 Unspecified otitis externa, right ear (principal); T15.91XA Foreign body on external eye, part unspecified, right eye, initial encounter; X58.XXXA Exposure to other specified factors, initial encounter

== ENCOUNTER 2018-05-10 07:30 | Outpatient (CLI) | payer MEDICARE, MEDICAID | END 2018-05-10 07:31 | disposition home or self-care (01) | LOC: C.CARD 07:31 ==

== ENCOUNTER 2018-06-25 21:43 | Inpatient (IN) | payer MEDICARE, MEDICAID ==
[2018-06-25 21:43] VITALS: BMI 22.6
[2018-06-25] MEDS ORDERED: Sodium Chloride 0.9% 1,000 ML IV ONE (22:13)
--- NOTE | 2018-06-25 22:13 | C.PDOC ---
History Of Present Illness 77 year old female is brought to the ED by her daughter for evaluation of abdominal pain associated with vomit and diarrhea since this morning. Patient states she felt light headed and dizzy. Upon arrival patient was actively dry heaving in the ED. Patient denies fever, chills, dysuria, hematuria, rash, recent travel, sick contacts. Time Seen by Provider: 06/25/18 22:13 Chief Complaint (Nursing): Abdominal Pain History Per: Patient, Family History/Exam Limitations: no limitations Onset/Duration Of Symptoms: Hrs Current Symptoms Are (Timing): Still Present Location Of Pain/Discomfort: Diffuse Quality Of Discomfort: "Pain" Associated Symptoms: Nausea, Vomiting, Diarrhea. denies: Constipation, Urinary Symptoms Recent travel outside of the [place]: No Additional History Per: Patient, Family Abnormal Vaginal Bleeding: No Past Medical History Reviewed: Historical Data, Nursing Documentation, Vital Signs Vital Signs: Last Vital Signs Temp 97.9 F 06/25/18 21:47 Pulse 82 06/25/18 21:47 Resp 20 06/25/18 21:47 BP 215/82 H 06/25/18 21:47 Pulse Ox 95 06/25/18 21:47 - Medical History PMH: Dementia, HTN, Hypercholesterolemia, Osteoporosis Denies: Chronic Kidney Disease Surgical History: No Surg Hx Family History: States: Unknown Family Hx - Social History Hx Alcohol Use: No Hx Substance Use: No - Immunization History Hx Tetanus Toxoid Vaccination: No Hx Influenza Vaccination: No Hx Pneumococcal Vaccination: No Review Of Systems Constitutional: Negative for: Fever, Chills Cardiovascular: Negative for: Chest Pain Respiratory: Negative for: Shortness of Breath Gastrointestinal: Positive for: Nausea, Vomiting, Abdominal Pain, Diarrhea Genitourinary: Negative for: Dysuria, Hematuria Musculoskeletal: Negative for: Back Pain Skin: Negative for: Rash Neurological: Negative for: Weakness, Numbness Physical Exam - Physical Exam Appears: Non-toxic, No Acute Distress Skin: Warm, Dry Head: Normacephalic Eye(s): bilateral: Normal Inspection Oral Mucosa: Moist Neck: Supple Chest: Symmetrical Cardiovascular: Rhythm Regular Respiratory: No Rales, No Rhonchi, No Wheezing Gastrointestinal/Abdominal: Soft, No Tenderness, Distention, No Guarding, No Tessie ound, Other (tympanic to percussion) Extremity: Bilateral: Atraumatic, Normal Color And Temperature, Normal ROM Neurological/Psych: Oriented x3, Normal Speech, Normal Cognition Gait: Steady ED Course And Treatment - Laboratory Results Result Diagrams: 06/25/18 22:36 06/25/18 22:36 ECG: Interpreted By Me, Viewed By Me ECG Rhythm: Sinus Rhythm (76), Nonspecific Changes O2 Sat by Pulse Oximetry: 95 (ON RA) Pulse Ox Interpretation: Normal - CT Scan/US CT abd/pelvis Other Rad Studies (CT/US): Read By Radiologist, Radiology Report Reviewed CT/US Interpretation: CT SCAN OF THE ABDOMEN AND PELVIS WITH CONTRAST. CLINICAL HISTORY: Patient with mid-upper gastric discomfort with spitting. Nausea and vomiting. TECHNIQUE: Multiple axial and coronal CT images were obtained through the abdomen and pelvis after administration of intravenous contrast material. COMMENTS: Subsegmental atelectasis with groundglass densities of the lower lobes. Fluid-filled distended stomach. Fluid-filled small bowels. Fluid- filled large bowels. Fat containing inguinal hernias without incarceration. The liver is of uniform attenuation without mass or defect. There is no intra or extrahepatic biliary ductal dilatation. The spleen is normal. The gallbladder is within normal limits. The pancreas is of normal contour and attenuation characteristics. There is no evidence of adrenal mass. Both kidneys demonstrate prompt and equal nephrograms. The kidneys are normal in size, shape and configuration. There is no evidence of renal or ureteral mass. No renal or ureteral calculi are identified. There is no hydroureter or hydronephrosis. No evidence for appendicitis. There is no bowel wall thickening. No evidence for small or large bowel obstruction. There is no evidence of abdominal ascites or lymphadenopathy. There is no evidence of intrinsic or extrinsic bladder mass. There is no pelvic ascites or lymphadenopathy. Images of the lung bases show no evidence of pleural or parenchymal mass. There are no pleural effusions. The bony structures are free of lytic or blastic lesions. IMPRESSION: Gastroparesis. Ileus. Bilateral basilar pulmonary atelectasis with suspected superimposed aspiration pneumonia. Thank you for your kind referral of this patient. . Electronically signed on Jun 26, 2018 2:58:31 AM EST by: Emmett Brothers M.D., Certified by ABR, MSK, Neuroradiology Progress Note: Plan: - EKG. - Labs. - Protonix 40 mg IVP. - IV fluids. - Zofran 4 mg IVP. - UA Disposition Discussed With DrRaymon: Zafar Quan Comment: accepted the pt on his service and took over the care at 5:25 AM Counseled Patient/Family Regarding: Studies Performed, Diagnosis - Disposition Disposition: HOSPITALIZED Disposition Time: 22:13 Condition: FAIR Forms: [facility] (Upper Sorbian) - POA Present On Arrival: Poor Glycemic Control - Clinical Impression Clinical Impression: Abdominal pain, Nausea, Vomiting, Gastroparesis, Ileus, Aspiration pneumonia - Scribe Statement The provider has reviewed the documentation as recorded by the Scribe Boo Kruse All medical record entries made by the Scribe were at my direction and persona lly dictated by me. I have reviewed the chart and agree that the record accurately reflects my personal performance of the history, physical exam, medical decision making, and the department course for this patient. I have also personally directed, reviewed, and agree with the discharge instructions and disposition. Decision To Admit - Pt Status Changed To: Hospital Disposition Of: Inpatient - Admit Certification Admit to Inpatient:: After my assessment, the patient will require hospitalization for at least two midnights. This is because of the severity of symptoms shown, intensity of services needed, and/or the medical risk in this patient being treated as an outpatient. - InPatient: Physician Admission Certification:: After my assessment, the patient will require hospitalization for at least two midnights. This is because of the severity of symptoms shown, intensity of services needed, and/or the medical risk in this patient being treated as an outpatient. - . Bed Request Type: Regular Admitting Physician: Zafar Quan Patient Diagnosis: Abdominal pain, Nausea, Vomiting, Gastroparesis, Ileus, Aspiration pneumonia
[2018-06-25] MEDS ORDERED: Sodium Chloride 0.9% 1,000 ML ONE (22:25)
[2018-06-25 22:52] LABS: ALB/GLOB RATIO 1.5 (1.0-2.1); ALBUMIN 5.1 g/dL (3.5-5.0); ALT/SGPT 26 U/L (9-52); AST/SGOT 35 U/L (14-36); BASO % 0.4 % (0.0-2.0); BLOOD UREA NITROGEN 18 mg/dL (7-17); CALCIUM 9.7 mg/dl (8.6-10.4); EOS % 0.3 % (0.0-4.0); GFR NON-AFRICAN AMERICAN > 60; HEMOGLOBIN 14.2 g/dL (11.0-16.0); LIPASE 75 U/L (23-300); LYMPH # 1.8 K/uL (1.0-4.3); LYMPH % 23.4 % (20.0-40.0); MEAN CELL VOLUME 94.1 fL (81.0-99.0); MEAN CORPUSCULAR HEMOGLOBIN 31.5 pg (27.0-31.0); MEAN CORPUSCULAR HGB CONC 33.4 g/dL (33.0-37.0); MEAN PLATELET VOLUME 10.9 fL (7.2-11.7); MONO # 0.6 K/uL (0.0-0.8); MONO % 7.7 % (0.0-10.0); NEUT # 5.2 K/uL (1.8-7.0); NEUT % 68.2 % (50.0-75.0); NRBC % 0.2 % (0.0-2.0); RBC 4.5 Mil/uL (3.80-5.20); RED CELL DISTRIBUTION WIDTH 14.2 % (11.5-14.5); WHITE BLOOD COUNT 7.6 K/uL (4.8-10.8)
[2018-06-25 23:11] LABS: INR 1.1; PROTHROMBIN TIME 12.5 SECONDS (9.7-12.2)
[2018-06-26 00:17] LABS: SQUAMOUS EPITHIAL < 1 /hpf (0-5); URINE BILIRUBIN NEGATIVE (NEGATIVE); URINE BLOOD NEGATIVE (NEGATIVE); URINE CLARITY Clear (Clear); URINE COLOR Yellow (YELLOW); URINE GLUCOSE (UA) NORMAL (Normal); URINE HYALINE CAST 0-2 /lpf (0-2); URINE LEUKOCYTE ESTERASE 2+ Leu/uL (Negative); URINE PROTEIN NEGATIVE (NEGATIVE); URINE UROBILINOGEN NORMAL mg/dL (0.2-1.0)
[2018-06-26] MEDS ORDERED: Iodixanol 320 MG/ML 100 ML BOTTLE IV ONE (00:38)
[2018-06-26] MEDS ORDERED: Azithromycin 500mg/250ML NS 500 MG/250 ML BAG IVPB ONE (05:35)
[2018-06-26] MEDS ORDERED: Sodium Chloride 0.45% 1,000 ML IV SCH (06:00)
[2018-06-26] MEDS: (Novolin 70/30) NPH/Regular 70/30 Units/ml 10 ml vial SC SCH ×2 (07:59→11:54)
--- NOTE | 2018-06-26 10:43 | CP.PCM.CON ---
History of Present Illness - History of Present Illness History of Present Illness: This is a 77 year old woman with nausea, vomiting, abdominal pain and diarrhea. Patient has a history of HTN, DM, jyperlipidemia and Alzheimer's disease, who was brought to the ER by family for evaluation of nausea, vomiting, diarrhea. At present, patient denies having abdominal pain. She states that she vomited yesterday but not today. She had frequent diarrhea yesterday, but not today. She denies having fever, chills, rectal bleeding. She denies traveling recently. Past Patient History - Infectious Disease Hx of Infectious Diseases: None - Past Medical History & Family History Past Medical History?: Yes - Past Social History Smoking Status: Never Smoked - CARDIAC Hx Hypercholesterolemia: Yes Hx Hypertension: Yes - PULMONARY Hx Respiratory Disorders: No - NEUROLOGICAL Hx Dementia: Yes - HEENT Hx HEENT Problems: Yes Hx Cataracts: Yes (BILAT.) - RENAL Hx Chronic Kidney Disease: No - ENDOCRINE/METABOLIC Hx Endocrine Disorders: Yes Hx Diabetes Mellitus Type 2: Yes - HEMATOLOGICAL/ONCOLOGICAL Hx Blood Disorders: No - INTEGUMENTARY Hx Dermatological Problems: No - MUSCULOSKELETAL/RHEUMATOLOGICAL Hx Arthritis: Yes Hx Falls: Yes - GASTROINTESTINAL Hx Gastrointestinal Disorders: Yes Hx Liver Failure: Yes ("SLIGHTLY ENLARGED") - GENITOURINARY/GYNECOLOGICAL Hx Genitourinary Disorders: Yes Hx Incontinence: Yes - PSYCHIATRIC Hx Substance Use: No - SURGICAL HISTORY Hx Surgeries: Yes Hx Cataract Extraction: Yes (BILAT.) - ANESTHESIA Hx Anesthesia: No Hx Anesthesia Reactions: Yes (VOMITING) Hx Malignant Hyperthermia: No Meds Allergies/Adverse Reactions: Allergies Allergy/AdvReac Type Severity Reaction Status Date / Time aspirin Allergy Intermediate NAUSEA Verified 06/25/18 21:51 - Medications Medications: Current Medications Folic Acid (Folic Acid) 1 mg PO DAILY [facility] Last Admin: 06/26/18 10:24 Dose: 1 mg Heparin Sodium (Porcine) (Heparin) 5,000 units SC Q12 [facility] Last Admin: 06/26/18 10:24 Dose: 5,000 units Home Med (Rivastigmine [Exelon 13.3 Mg/24 Hr Patch]) 13.3 mg TD DAILY [facility] Azithromycin 500 mg/ Sodium (Chloride) 250 mls @ 250 mls/hr IVPB Q24H [facility]; Protocol Ceftriaxone Sodium 1 gm/ (Sodium Chloride) 100 mls @ 100 mls/hr IVPB DAILY [facility]; Protocol Last Admin: 06/26/18 05:40 Dose: 100 mls/hr Sodium Chloride (Sodium Chloride 0.45%) 1,000 mls @ 75 mls/hr IV .[id number] [facility] Last Admin: 06/26/18 08:27 Dose: 75 mls/hr Insulin Human Isoph/Insulin Regular (Novolin 70/30 (70/30 Units/Ml) 10 Ml) 0 units SC ACHS [facility]; Protocol Last Admin: 06/26/18 07:59 Dose: Not Given Memantine (Namenda) 10 mg PO BID [facility] Last Admin: 06/26/18 10:24 Dose: 10 mg Morphine Sulfate (Morphine) 2 mg IVP Q4 PRN PRN Reason: Pain, moderate (4-7) Last Admin: 06/26/18 05:50 Dose: 2 mg Ondansetron HCl (Zofran Inj) 4 mg IVP Q6 PRN PRN Reason: Nausea/Vomiting Last Admin: 06/26/18 08:27 Dose: 4 mg Pantoprazole Sodium (Protonix Inj) 40 mg IVP DAILY [facility] Last Admin: 06/26/18 10:24 Dose: 40 mg Rosuvastatin Calcium (Crestor) 5 mg PO HS [facility] Physical Exam - Constitutional Appears: No Acute Distress - Head Exam Head Exam: ATRAUMATIC, NORMOCEPHALIC - Eye Exam Eye Exam: EOMI, PERRL - Neck Exam Neck exam: Negative for: Lymphadenopathy, Thyromegaly - Respiratory Exam Respiratory Exam: NORMAL BREATHING PATTERN. absent: Rales, Rhonchi, Wheezes - Cardiovascular Exam Cardiovascular Exam: REGULAR RHYTHM, +S1, +S2. absent: Gallop, Rubs, Systolic Murmur - GI/Abdominal Exam GI & Abdominal Exam: Normal Bowel Sounds, Soft. absent: Mass, Organomegaly, Tenderness - Rectal Exam Rectal Exam: Deferred - Extremities Exam Extremities exam: Negative for: calf tenderness, pedal edema Results - Vital Signs Recent Vital Signs: Last Vital Signs Temp 97.9 F 06/26/18 07:06 Pulse 66 06/26/18 09:04 Resp 20 06/26/18 07:06 BP 134/66 06/26/18 07:06 Pulse Ox 94 L 06/26/18 07:06 - Labs Result Diagrams: 06/26/18 17:24 06/27/18 07:20 Labs: Laboratory Results - last 24 hr 06/25/18 06/25/18 06/25/18 21:49 22:36 22:36 WBC 7.6 D RBC 4.50 Hgb 14.2 Hct 42.4 MCV 94.1 MCH 31.5 H MCHC 33.4 RDW 14.2 Plt Count 178 MPV 10.9 Neut % (Auto) 68.2 Lymph % (Auto) 23.4 [place] % (Auto) 7.7 Eos % (Auto) 0.3 Baso % (Auto) 0.4 Neut # (Auto) 5.2 Lymph # (Auto) 1.8 Travis # (Auto) 0.6 Eos # (Auto) 0.0 Baso # (Auto) 0.0 PT 12.5 H INR 1.1 APTT 32 Sodium Potassium Chloride Carbon Dioxide Anion Gap BUN Creatinine Est GFR ( Amer) Est GFR (Non-Af Amer) POC Glucose (mg/dL) 168 H Random Glucose Calcium Total Bilirubin AST ALT Alkaline Phosphatase Total Protein Albumin Globulin Albumin/Globulin Ratio Lipase Urine Color Urine Clarity Urine pH Ur Specific [place] Urine Protein Urine Glucose (UA) Urine Ketones Urine Blood Urine Nitrate Urine Bilirubin Urine Urobilinogen Ur Leukocyte Esterase Urine WBC (Auto) Urine RBC (Auto) Ur Squamous Epith Cells Hyaline Casts 06/25/18 06/25/18 22:36 23:51 WBC RBC Hgb Hct MCV MCH MCHC RDW Plt Count MPV Neut % (Auto) Lymph % (Auto) [place] % (Auto) Eos % (Auto) Baso % (Auto) Neut # (Auto) Lymph # (Auto) [place] # (Auto) Eos # (Auto) Baso # (Auto) PT INR APTT Sodium 142 Potassium 4.3 Chloride 107 Carbon Dioxide 25 Anion Gap 14 BUN 18 H Creatinine 0.7 Est GFR ( Amer) > 60 Est GFR (Non-Af Amer) > 60 POC Glucose (mg/dL) Random Glucose 165 H Calcium 9.7 Total Bilirubin 0.5 AST 35 ALT 26 Alkaline Phosphatase 68 Total Protein 8.5 H Albumin 5.1 H D Globulin 3.4 Albumin/Globulin Ratio 1.5 Lipase 75 Urine Color Yellow Urine Clarity Clear Urine pH 5.0 Ur Specific [place] 1.012 Urine Protein Negative Urine Glucose (UA) Normal Urine Ketones Negative Urine Blood Negative Urine Nitrate Negative Urine Bilirubin Negative Urine Urobilinogen Normal Ur Leukocyte Esterase 2+ H Urine WBC (Auto) 2 Urine RBC (Auto) 1 Ur Squamous Epith Cells < 1 Hyaline Casts 0-2 Assessment & Plan (1) Nausea and vomiting Assessment and Plan: Patient was admitted for nausea and vomiting, which are improving. CT scan showed a distended stomach, suggestive of gastroparesis. Will schedule gastric emptying scan and EGD. Status: Acute
--- NOTE | 2018-06-26 10:45 | CP.PCM.CON ---
History of Present Illness - History of Present Illness History of Present Illness: 77 year old female is brought to the ED by her daughter for evaluation of abdominal pain associated with vomit and diarrhea since this morning. Patient states she felt light headed and dizzy. Upon arrival patient was actively dry heaving in the ED. Patient denies fever, chills, dysuria, hematuria, rash, recent travel, sick contacts. Referred for ID eval of pneumonia possibly secondary to aspiration - Medical History PMH: Dementia, HTN, Hypercholesterolemia, Osteoporosis Denies: Chronic Kidney Disease Surgical History: No Surg Hx Family History: States: Unknown Family Hx Review of Systems - Review of Systems All systems: reviewed and no additional remarkable complaints except - Constitutional Constitutional: As Per HPI - EENT Eyes: absent: As Per HPI, Blind Spots, Blurred Vision, Change in Vision, Decreased Night Vision, Diplopia, Discharge, Dry Eye, Exophthalmos, Floaters, Irritation, Itchy Eyes, Loss of Peripheral Vision, Pain, Photophobia, Requires Corrective Lenses, Sees Flashes, Spots in Vision, Tunnel Vision, Other Visual Disturbances, Loss of Vision, Other Ears: absent: As Per HPI, Decreased Hearing, Ear Discharge, Ear Pain, Tinnitus, Abnormal Hearing, Disequilibrium, Dizziness, Other Nose/Mouth/Throat: absent: As Per HPI, Epistaxis, Nasal Congestion, Nasal Discharge, Nasal Obstruction, Nasal Trauma, Nose Pain, Post Nasal Drip, Sinus Pain, Sinus Pressure, Bleeding Gums, Change in Voice, Dental Pain, Dry Mouth, Dysphagia, Halitosis, Hoarsness, Lip Swelling, Mouth Lesions, Mouth Pain, Odynophagia, Sore Throat, Throat Swelling, Tongue Swelling, Facial Pain, Neck Pain, Neck Mass, Other - Breasts Breasts: absent: As Per HPI, Change in Shape, Mass, Pain, Nipple Discharge, Nipple Inversion, Skin Changes, Swelling, Other - Cardiovascular Cardiovascular: As Per HPI - Respiratory Respiratory: As Per HPI, Cough - Gastrointestinal Gastrointestinal: As Per HPI, Abdominal Pain - Genitourinary Genitourinary: absent: As Per HPI, Change in Urinary Stream, Difficulty Urinating, Dysuria, Flank Pain, Hematuria, Pyuria, Nocturia, Urinary Incontinence, Urinary Frequency, Urinary Hesitance, Urinary Urgency, Voiding Freq/Small Amts, Freq UTI, Hx Renal/Bladder Calculi, Hx /Renal Surgery, Bladder Distension, Other - Reproductive: Female Reproductive:Female: absent: As Per HPI, Amenorrhea, Amenorrhea/ Control, Currently Menstual, Cycle <21 Days, Cycle >35 Days, Cycle Variable, Menses 1-7 Days, Menses >/= 8 Days, Menses Variable, Cycle > 4 Weeks Between, No Menses for 6 Months, Heavy Menses, Light Menses, Normal Menses, Spotting Between Cycles, S/P Hysterectomy, Menopausal, Post Menopausal, Premenarche, Abnormal Vaginal Bleeding, Dysmenorrhea, Dyspareunia, Genital Lesions, Genital Pruritis, Pelvic Pain, Prolapse Symptoms, Sexual Dysfunction, Vaginal Discharge, Vaginal Dryness, Vaginal Odor, Vaginal Pruritis, Other - Menstruation Menstruation: absent: As Per HPI, Amenorrhea, Amenorrhea/ Control, Currently Menstual, Cycle <21 Days, Cycle >35 Days, Cycle Variable, Menses 1-7 Days, Menses >/= 8 Days, Menses Variable, Cycle > 4 Weeks Between, No Menses for 6 Months, Heavy Menses, Light Menses, Normal Menses, Spotting Between Cycles, S/P Hysterectomy, Menopausal, Post Menopausal, Premenarche, Abnormal Vaginal Bleeding, Dysmenorrhea, Other - Musculoskeletal Musculoskeletal: absent: As Per HPI, Abnormal Gait, Arthralgias, Atrophy, Back Pain, Deformity, Joint Swelling, Limited Range of Motion, Loss of Height, Muscle Cramps, Muscle Weakness, Myalgias, Neck Pain, Numbness, Radiating Pain into Limb, Stiffness, Tingling, Other - Integumentary Integumentary: absent: As Per HPI, Acne, Alopecia, Bleeding Lesions, Change in Hair, Change in Nails, Change in Pigmentation, Changing Lesions, Dry Skin, Erythema, Furuncle, Hirsutism, Lesions, New Lesions, Non-Healing Lesions, Photosensitivity, Pruritus, Rash, Skin Pain, Skin Ulcer, Sores, Striae, Swelling, Unusual Bruising, Wounds, Jaundice, Other - Neurological Neurological: absent: As Per HPI, Abnormal Gait, Abnormal Hearing, Abnormal Movements, Abnormal Speech, Behavioral Changes, Burning Sensations, Confusion, Convulsions, Disequilibrium, Dizziness, Numbness, Focal Weakness, Frequent Falls, Headaches, Lack of Coordination, Loss of Vision, Memory Loss, Pare sthesias, Radicular Pain, Restless Legs, Sensory Deficit, Syncope, Tingling, Tremor, Vertigo, Weakness, Other Visual Disturbances, Other - Psychiatric Psychiatric: absent: As Per HPI, Abnormal Sleep Pattern, Anhedonia, Anxiety, Auditory Hallucinations, Behavioral Changes, Change in Appetite, Change in Libido, Confusion, Depression, Difficulty Concentrating, Hallucinations, Homicidal Ideation, Hopelessness, Irritability, Memory Loss, Mood Swings, Panic Attacks, Paranoia, Suicidal Ideation, Visual Hallucinations, Tactile Hallucinations, Other - Endocrine Endocrine: As Per HPI - Hematologic/Lymphatic Hematologic: absent: As Per HPI, Easy Bleeding, Easy Bruising, Lymphadenopathy, Other Past Patient History - Infectious Disease Hx of Infectious Diseases: None - Past Medical History & Family History Past Medical History?: Yes - Past Social History Smoking Status: Never Smoked - CARDIAC Hx Hypercholesterolemia: Yes Hx Hypertension: Yes - PULMONARY Hx Respiratory Disorders: No - NEUROLOGICAL Hx Dementia: Yes - HEENT Hx HEENT Problems: Yes Hx Cataracts: Yes (BILAT.) - RENAL Hx Chronic Kidney Disease: No - ENDOCRINE/METABOLIC Hx Endocrine Disorders: Yes Hx Diabetes Mellitus Type 2: Yes - HEMATOLOGICAL/ONCOLOGICAL Hx Blood Disorders: No - INTEGUMENTARY Hx Dermatological Problems: No - MUSCULOSKELETAL/RHEUMATOLOGICAL Hx Arthritis: Yes Hx Falls: Yes - GASTROINTESTINAL Hx Gastrointestinal Disorders: Yes Hx Liver Failure: Yes ("SLIGHTLY ENLARGED") - GENITOURINARY/GYNECOLOGICAL Hx Genitourinary Disorders: Yes Hx Incontinence: Yes - PSYCHIATRIC Hx Substance Use: No - SURGICAL HISTORY Hx Surgeries: Yes Hx Cataract Extraction: Yes (BILAT.) - ANESTHESIA Hx Anesthesia: No Hx Anesthesia Reactions: Yes (VOMITING) Hx Malignant Hyperthermia: No Meds Allergies/Adverse Reactions: Allergies Allergy/AdvReac Type Severity Reaction Status Date / Time losartan Allergy Severe ANGIOEDEMA Verified 06/25/18 21:51 aspirin Allergy Intermediate NAUSEA Verified 06/25/18 21:51 - Medications Medications: Current Medications Folic Acid (Folic Acid) 1 mg PO DAILY [facility] Last Admin: 06/26/18 10:24 Dose: 1 mg Heparin Sodium (Porcine) (Heparin) 5,000 units SC Q12 [facility] Last Admin: 06/26/18 10:24 Dose: 5,000 units Home Med (Rivastigmine [Exelon 13.3 Mg/24 Hr Patch]) 13.3 mg TD DAILY [facility] Azithromycin 500 mg/ Sodium (Chloride) 250 mls @ 250 mls/hr IVPB Q24H [facility]; Protocol Ceftriaxone Sodium 1 gm/ (Sodium Chloride) 100 mls @ 100 mls/hr IVPB DAILY [facility]; Protocol Last Admin: 06/26/18 05:40 Dose: 100 mls/hr Sodium Chloride (Sodium Chloride 0.45%) 1,000 mls @ 75 mls/hr IV .[id number] [facility] Last Admin: 06/26/18 08:27 Dose: 75 mls/hr Insulin Human Isoph/Insulin Regular (Novolin 70/30 (70/30 Units/Ml) 10 Ml) 0 units SC ACHS [facility]; Protocol Last Admin: 06/26/18 07:59 Dose: Not Given Memantine (Namenda) 10 mg PO BID [facility] Last Admin: 06/26/18 10:24 Dose: 10 mg Morphine Sulfate (Morphine) 2 mg IVP Q4 PRN PRN Reason: Pain, moderate (4-7) Last Admin: 06/26/18 05:50 Dose: 2 mg Ondansetron HCl (Zofran Inj) 4 mg IVP Q6 PRN PRN Reason: Nausea/Vomiting Last Admin: 06/26/18 08:27 Dose: 4 mg Pantoprazole Sodium (Protonix Inj) 40 mg IVP DAILY [facility] Last Admin: 06/26/18 10:24 Dose: 40 mg Rosuvastatin Calcium (Crestor) 5 mg PO HS [facility] Physical Exam - Constitutional Appears: Non-toxic, No Acute Distress, Confused, Chronically Ill - Head Exam Head Exam: ATRAUMATIC, NORMAL INSPECTION, NORMOCEPHALIC - Eye Exam Eye Exam: PERRL. absent: Scleral icterus Pupil Exam: NORMAL ACCOMODATION - ENT Exam ENT Exam: Mucous Membranes Dry, Normal External Ear Exam, Normal Oropharynx - Neck Exam Neck exam: Negative for: Lymphadenopathy - Respiratory Exam Respiratory Exam: Decreased Breath Sounds, Prolonged Expiratory Phase, Rhonchi - Cardiovascular Exam Cardiovascular Exam: REGULAR RHYTHM, +S1, +S2 - GI/Abdominal Exam GI & Abdominal Exam: Diminished Bowel Sounds, Distended, Soft. absent: Rebound, Rigid, Tenderness - Rectal Exam Rectal Exam: Deferred - Exam Exam: NORMAL INSPECTION - Extremities Exam Extremities exam: Positive for: pedal pulses present. Negative for: calf tenderness, pedal edema, tenderness - Back Exam Back exam: absent: CVA tenderness (L), CVA tenderness (R), paraspinal tenderness - Neurological Exam Neurological exam: Alert, CN II-XII Intact, Oriented x3, Reflexes Normal - Psychiatric Exam Psychiatric exam: Normal Mood - Skin Skin Exam: Dry, Intact Results - Vital Signs Recent Vital Signs: Last Vital Signs Temp 97.9 F 06/26/18 07:06 Pulse 66 06/26/18 09:04 Resp 20 06/26/18 07:06 BP 134/66 06/26/18 07:06 Pulse Ox 94 L 06/26/18 07:06 - Labs Result Diagrams: 06/26/18 17:24 06/25/18 22:36 Labs: Laboratory Results - last 24 hr 06/25/18 06/25/18 06/25/18 21:49 22:36 22:36 WBC 7.6 D RBC 4.50 Hgb 14.2 Hct 42.4 MCV 94.1 MCH 31.5 H MCHC 33.4 RDW 14.2 Plt Count 178 MPV 10.9 Neut % (Auto) 68.2 Lymph % (Auto) 23.4 Cross % (Auto) 7.7 Eos % (Auto) 0.3 Baso % (Auto) 0.4 Neut # (Auto) 5.2 Lymph # (Auto) 1.8 Cross # (Auto) 0.6 Eos # (Auto) 0.0 Baso # (Auto) 0.0 PT 12.5 H INR 1.1 APTT 32 Sodium Potassium Chloride Carbon Dioxide Anion Gap BUN Creatinine Est GFR ( Amer) Est GFR (Non-Af Amer) POC Glucose (mg/dL) 168 H Random Glucose Calcium Total Bilirubin AST ALT Alkaline Phosphatase Total Protein Albumin Globulin Albumin/Globulin Ratio Lipase Urine Color Urine Clarity Urine pH Ur Specific [place] Urine Protein Urine Glucose (UA) Urine Ketones Urine Blood Urine Nitrate Urine Bilirubin Urine Urobilinogen Ur Leukocyte Esterase Urine WBC (Auto) Urine RBC (Auto) Ur Squamous Epith Cells Hyaline Casts 06/25/18 06/25/18 22:36 23:51 WBC RBC Hgb Hct MCV MCH MCHC RDW Plt Count MPV Neut % (Auto) Lymph % (Auto) [place] % (Auto) Eos % (Auto) Baso % (Auto) Neut # (Auto) Lymph # (Auto) [place] # (Auto) Eos # (Auto) Baso # (Auto) PT INR APTT Sodium 142 Potassium 4.3 Chloride 107 Carbon Dioxide 25 Anion Gap 14 BUN 18 H Creatinine 0.7 Est GFR ( Amer) > 60 Est GFR (Non-Af Amer) > 60 POC Glucose (mg/dL) Random Glucose 165 H Calcium 9.7 Total Bilirubin 0.5 AST 35 ALT 26 Alkaline Phosphatase 68 Total Protein 8.5 H Albumin 5.1 H D Globulin 3.4 Albumin/Globulin Ratio 1.5 Lipase 75 Urine Color Yellow Urine Clarity Clear Urine pH 5.0 Ur Specific [place] 1.012 Urine Protein Negative Urine Glucose (UA) Normal Urine Ketones Negative Urine Blood Negative Urine Nitrate Negative Urine Bilirubin Negative Urine Urobilinogen Normal Ur Leukocyte Esterase 2+ H Urine WBC (Auto) 2 Urine RBC (Auto) 1 Ur Squamous Epith Cells < 1 Hyaline Casts 0-2 Assessment & Plan (1) Abdominal pain Status: Acute (2) Aspiration pneumonia Status: Acute (3) Gastroparesis Status: Acute (4) Ileus Status: Acute (5) Nausea Status: Acute (6) Vomiting Status: Acute - Assessment and Plan (Free Text) Assessment: Await cultures and serologies GI eval in progress Cont IV rx, rx gastroparesis
--- NOTE | 2018-06-26 11:41 | CT ---
Date of service: 06/26/2018 PROCEDURE: CT Abdomen and Pelvis with contrast HISTORY: abd pain, n/v COMPARISON: None. TECHNIQUE: Contrast dose: 100 mL Visipaque 320 Radiation dose: Total exam DLP = 329.7 mGy-cm. This CT exam was performed using one or more of the following dose reduction techniques: Automated exposure control, adjustment of the mA and/or kV according to patient size, and/or use of iterative reconstruction technique. FINDINGS: LOWER THORAX: Left lower lobe linear scar/atelectasis. LIVER: Unremarkable. No gross lesion or ductal dilatation. GALLBLADDER AND BILE DUCTS: Cholecystectomy PANCREAS: Unremarkable. No gross lesion or ductal dilatation. SPLEEN: Unremarkable. ADRENALS: Unremarkable. No mass. KIDNEYS AND URETERS: There is some lobulation of the left kidney, likely developmental. There is a nonspecific 8 mm low-density mass in the upper pole right kidney, likely a cortical cyst. A similar 13 mm mass is also identified in the upper pole right kidney. No calculus or hydronephrosis is identified. VASCULATURE: Unremarkable. No aortic aneurysm. There is atherosclerotic calcification of the abdominal aorta. BOWEL: Sigmoid diverticulosis. No evidence of diverticulitis. No bowel obstruction. No other abnormal bowel loops are identified. APPENDIX: The appendix is distended with fluid up to a diameter of approximately 10 mm. There is no periappendiceal inflammatory change. There is no periappendiceal abscess. There is no free air. The finding is concerning for acute appendicitis. PERITONEUM: Unremarkable. No free fluid. No free air. LYMPH NODES: No retroperitoneal or pelvic lymphadenopathy. Few subcentimeter nodes are seen medial to the appendix. Likely reactive.. BLADDER: Unremarkable. REPRODUCTIVE: Unremarkable uterus. BONES: No acute fracture. OTHER FINDINGS: None. IMPRESSION: Findings consistent with acute uncomplicated appendicitis. No periappendiceal abscess or free air. Findings discussed by telephone with Dr. Harris at 11:30 a.m. on 06/26/2018. The preliminary findings for this examination were reported by [facility] at 2:58 a.m. on 06/26/2018. There is discordance of this report with the preliminary findings. The finding of the distended fluid-filled appendix was not described in the preliminary report of this examination
[2018-06-26] MEDS ORDERED: Dextrose 50% SYRINGE Inj (50 ml) IV PRN (13:03)
[2018-06-26] MEDS ORDERED: Glucagon Recombinant 1 mg Inj IM PRN (13:03)
--- NOTE | 2018-06-26 13:36 | RAD ---
Date of service: 06/26/2018 HISTORY: pneumonia COMPARISON: 02/09/2017 FINDINGS: LUNGS: No consolidation. The 2 to 3 mm mid right lung zone referenced nodular opacity is stable since 2017. No interval worrisome pathology suggested. PLEURA: No significant pleural effusion identified, no pneumothorax apparent. CARDIOVASCULAR: There is presence of aortic atherosclerotic calcification on x-ray. Tortuous unfolded prominence to the thoracic aorta noted. Normal cardiac size. No pulmonary vascular congestion. OSSEOUS STRUCTURES: Thoraco lumbar spondylosis. Bilateral shoulder arthrosis VISUALIZED UPPER ABDOMEN: Normal. OTHER FINDINGS: None. IMPRESSION: No active disease. No interval pathology noted
--- NOTE | 2018-06-26 14:34 | CP.PCM.CON ---
History of Present Illness - History of Present Illness History of Present Illness: SURGERY CONSULT FOR DR. NUNEZ Reason of consult - Rule out appendicitis 77F presented to hospital for abdominal pain. Patient states pain started yesterday and was preceded with diarrhea which started the day before. Patient states pain was diffuse in nature and has improved since. Patient admits ot nausea and vomiting, denies fevers or chills. Patient states diarrhea, pain and nausea have all resolved. She has had these symptoms before in the past. PMH: HTN, DM, HLD, Dementia PSH: (vertical incision), arthroplasty of left toes Allergies: Losartan, Aspirin Past Patient History - Infectious Disease Hx of Infectious Diseases: None - Past Medical History & Family History Past Medical History?: Yes - Past Social History Smoking Status: Never Smoked - CARDIAC Hx Hypercholesterolemia: Yes Hx Hypertension: Yes - PULMONARY Hx Respiratory Disorders: No - NEUROLOGICAL Hx Dementia: Yes - HEENT Hx HEENT Problems: Yes Hx Cataracts: Yes (BILAT.) - RENAL Hx Chronic Kidney Disease: No - ENDOCRINE/METABOLIC Hx Endocrine Disorders: Yes Hx Diabetes Mellitus Type 2: Yes - HEMATOLOGICAL/ONCOLOGICAL Hx Blood Disorders: No - INTEGUMENTARY Hx Dermatological Problems: No - MUSCULOSKELETAL/RHEUMATOLOGICAL Hx Arthritis: Yes Hx Falls: Yes - GASTROINTESTINAL Hx Gastrointestinal Disorders: Yes Hx Liver Failure: Yes ("SLIGHTLY ENLARGED") - GENITOURINARY/GYNECOLOGICAL Hx Genitourinary Disorders: Yes Hx Incontinence: Yes - PSYCHIATRIC Hx Substance Use: No - SURGICAL HISTORY Hx Surgeries: Yes Hx Cataract Extraction: Yes (BILAT.) - ANESTHESIA Hx Anesthesia: No Hx Anesthesia Reactions: Yes (VOMITING) Hx Malignant Hyperthermia: No Meds Allergies/Adverse Reactions: Allergies Allergy/AdvReac Type Severity Reaction Status Date / Time losartan Allergy Severe ANGIOEDEMA Verified 06/25/18 21:51 aspirin Allergy Intermediate NAUSEA Verified 06/25/18 21:51 - Medications Medications: Current Medications Dextrose (Dextrose 50% Inj) 0 ml IV STAT PRN; Protocol PRN Reason: Hypoglycemia Protocol Dextrose (Glutose 15) 0 gm PO ONCE PRN; Protocol PRN Reason: Hypoglycemia Protocol Folic Acid (Folic Acid) 1 mg PO DAILY REPLACED BY [facility] Last Admin: 06/26/18 10:24 Dose: 1 mg Glucagon (Glucagen Diagnostic Kit) 0 mg IM STAT PRN; Protocol PRN Reason: Hypoglycemia Protocol Heparin Sodium (Porcine) (Heparin) 5,000 units SC Q12 REPLACED BY [facility] Last Admin: 06/26/18 10:24 Dose: 5,000 units Home Med (Rivastigmine [Exelon 13.3 Mg/24 Hr Patch]) 13.3 mg TD DAILY REPLACED BY [facility] Azithromycin 500 mg/ Sodium (Chloride) 250 mls @ 250 mls/hr IVPB Q24H REPLACED BY [facility]; Protocol Ceftriaxone Sodium 1 gm/ (Sodium Chloride) 100 mls @ 100 mls/hr IVPB DAILY REPLACED BY [facility]; Protocol Last Admin: 06/26/18 05:40 Dose: 100 mls/hr Dextrose (Dextrose 5% In Water 1000 Ml) 1,000 mls @ 0 mls/hr IV .Q0M PRN; Protocol PRN Reason: Hypoglycemia Protocol Dextrose/Sodium Chloride (Dextrose 5%/0.45% Ns 1000 Ml) 1,000 mls @ 80 mls/hr IV .[id number] REPLACED BY [facility] Insulin Aspart (Novolog) 0 unit SC ACHS REPLACED BY [facility]; Protocol Memantine (Namenda) 10 mg PO BID REPLACED BY [facility] Last Admin: 06/26/18 10:24 Dose: 10 mg Morphine Sulfate (Morphine) 2 mg IVP Q4 PRN PRN Reason: Pain, moderate (4-7) Last Admin: 06/26/18 05:50 Dose: 2 mg Ondansetron HCl (Zofran Inj) 4 mg IVP Q6 PRN PRN Reason: Nausea/Vomiting Last Admin: 06/26/18 08:27 Dose: 4 mg Pantoprazole Sodium (Protonix Inj) 40 mg IVP DAILY REPLACED BY [facility] Last Admin: 06/26/18 10:24 Dose: 40 mg Rosuvastatin Calcium (Crestor) 5 mg PO HS REPLACED BY [facility] Physical Exam - Constitutional Appears: Non-toxic, No Acute Distress - ENT Exam ENT Exam: Mucous Membranes Moist - Respiratory Exam Respiratory Exam: Clear to Auscultation Bilateral, NORMAL BREATHING PATTERN - Cardiovascular Exam Cardiovascular Exam: REGULAR RHYTHM, +S1, +S2 - GI/Abdominal Exam GI & Abdominal Exam: Soft. absent: Distended, Firm, Guarding, Rebound, Rigid, Tenderness - Extremities Exam Extremities exam: Negative for: pedal edema, tenderness - Neurological Exam Neurological exam: Alert, Oriented x3 - Psychiatric Exam Psychiatric exam: Normal Affect, Normal Mood - Skin Skin Exam: Dry, Intact, Normal Color, Warm Results - Vital Signs Recent Vital Signs: Last Vital Signs Temp 97.9 F 06/26/18 07:06 Pulse 66 06/26/18 09:04 Resp 20 06/26/18 07:06 BP 134/66 06/26/18 07:06 Pulse Ox 94 L 06/26/18 07:06 - Labs Result Diagrams: 06/25/18 22:36 06/25/18 22:36 Labs: Laboratory Results - last 24 hr 06/25/18 06/25/18 06/25/18 21:49 22:36 22:36 WBC 7.6 D RBC 4.50 Hgb 14.2 Hct 42.4 MCV 94.1 MCH 31.5 H MCHC 33.4 RDW 14.2 Plt Count 178 MPV 10.9 Neut % (Auto) 68.2 Lymph % (Auto) 23.4 [place] % (Auto) 7.7 Eos % (Auto) 0.3 Baso % (Auto) 0.4 Neut # (Auto) 5.2 Lymph # (Auto) 1.8 [place] # (Auto) 0.6 Eos # (Auto) 0.0 Baso # (Auto) 0.0 PT 12.5 H INR 1.1 APTT 32 Sodium Potassium Chloride Carbon Dioxide Anion Gap BUN Creatinine Est GFR ( Amer) Est GFR (Non-Af Amer) POC Glucose (mg/dL) 168 H Random Glucose Calcium Total Bilirubin AST ALT Alkaline Phosphatase Total Protein Albumin Globulin Albumin/Globulin Ratio Lipase Urine Color Urine Clarity Urine pH Ur Specific [place] Urine Protein Urine Glucose (UA) Urine Ketones Urine Blood Urine Nitrate Urine Bilirubin Urine Urobilinogen Ur Leukocyte Esterase Urine WBC (Auto) Urine RBC (Auto) Ur Squamous Epith Cells Hyaline Casts Influenza Typ A,B (EIA) 06/25/18 06/25/18 06/26/18 22:36 23:51 11:32 WBC RBC Hgb Hct MCV MCH MCHC RDW Plt Count MPV Neut % (Auto) Lymph % (Auto) [place] % (Auto) Eos % (Auto) Baso % (Auto) Neut # (Auto) Lymph # (Auto) [place] # (Auto) Eos # (Auto) Baso # (Auto) PT INR APTT Sodium 142 Potassium 4.3 Chloride 107 Carbon Dioxide 25 Anion Gap 14 BUN 18 H Creatinine 0.7 Est GFR ( Amer) > 60 Est GFR (Non-Af Amer) > 60 POC Glucose (mg/dL) Random Glucose 165 H Calcium 9.7 Total Bilirubin 0.5 AST 35 ALT 26 Alkaline Phosphatase 68 Total Protein 8.5 H Albumin 5.1 H D Globulin 3.4 Albumin/Globulin Ratio 1.5 Lipase 75 Urine Color Yellow Urine Clarity Clear Urine pH 5.0 Ur Specific [place] 1.012 Urine Protein Negative Urine Glucose (UA) Normal Urine Ketones Negative Urine Blood Negative Urine Nitrate Negative Urine Bilirubin Negative Urine Urobilinogen Normal Ur Leukocyte Esterase 2+ H Urine WBC (Auto) 2 Urine RBC (Auto) 1 Ur Squamous Epith Cells < 1 Hyaline Casts 0-2 Influenza Typ A,B (EIA) Negative for flu a/b Assessment & Plan - Assessment and Plan (Free Text) Assessment: 77F with enteritis, resolved Plan: - advance diet as tolerated - monitor labs for dehydration - Monitor bowel function - No surgical intervention at this time Further recs discuss with Dr. Mitchell Webster, PGY3
[2018-06-26] MEDS: RIVASTIGMINE 13.3 MG TD SCH (14:54)
[2018-06-26] MEDS: Dextrose 5%/0.45% NS 1,000 ML IV SCH (14:54)
--- NOTE | 2018-06-26 15:29 | CP.PCM.CON ---
History of Present Illness - History of Present Illness History of Present Illness: Patient is a 77 y/o female with a PMH of dementia, HTN, HLD, osteoporosis who presented to the ED with her daughter for abdominal pain, vomiting and diarrhea that started this morning. Patient states she also felt light-headed and dizzy. Dry heaving when brought into ED. PMH: Dementia, HTN, HLD, osteoporosis Surg Hx: None FMH: No Known Surg Hx: Denies alcohol and drug use Patient seen and examined at bedside. She currently is comfortable and states her cough has improved. She denies fever, chills, chest pain. Afebrile. Physical Exam General: AAOx3 Cardio: RRR, no murmur Pulm: CTA b/l Abd: Soft, non-distended A/P Aspiration pneumonia - f/u CXR -IV antibiotics Legionella mycoplasma titer -ID evaluation Past Patient History - Infectious Disease Hx of Infectious Diseases: None - Past Medical History & Family History Past Medical History?: Yes - Past Social History Smoking Status: Never Smoked - CARDIAC Hx Hypercholesterolemia: Yes Hx Hypertension: Yes - PULMONARY Hx Respiratory Disorders: No - NEUROLOGICAL Hx Dementia: Yes - HEENT Hx HEENT Problems: Yes Hx Cataracts: Yes (BILAT.) - RENAL Hx Chronic Kidney Disease: No - ENDOCRINE/METABOLIC Hx Endocrine Disorders: Yes Hx Diabetes Mellitus Type 2: Yes - HEMATOLOGICAL/ONCOLOGICAL Hx Blood Disorders: No - INTEGUMENTARY Hx Dermatological Problems: No - MUSCULOSKELETAL/RHEUMATOLOGICAL Hx Arthritis: Yes Hx Falls: Yes - GASTROINTESTINAL Hx Gastrointestinal Disorders: Yes Hx Liver Failure: Yes ("SLIGHTLY ENLARGED") - GENITOURINARY/GYNECOLOGICAL Hx Genitourinary Disorders: Yes Hx Incontinence: Yes - PSYCHIATRIC Hx Substance Use: No - SURGICAL HISTORY Hx Surgeries: Yes Hx Cataract Extraction: Yes (BILAT.) - ANESTHESIA Hx Anesthesia: No Hx Anesthesia Reactions: Yes (VOMITING) Hx Malignant Hyperthermia: No Meds Allergies/Adverse Reactions: Allergies Allergy/AdvReac Type Severity Reaction Status Date / Time losartan Allergy Severe ANGIOEDEMA Verified 06/25/18 21:51 aspirin Allergy Intermediate NAUSEA Verified 06/25/18 21:51 - Medications Medications: Current Medications Dextrose (Dextrose 50% Inj) 0 ml IV STAT PRN; Protocol PRN Reason: Hypoglycemia Protocol Dextrose (Glutose 15) 0 gm PO ONCE PRN; Protocol PRN Reason: Hypoglycemia Protocol Folic Acid (Folic Acid) 1 mg PO DAILY [facility] Last Admin: 06/26/18 10:24 Dose: 1 mg Glucagon (Glucagen Diagnostic Kit) 0 mg IM STAT PRN; Protocol PRN Reason: Hypoglycemia Protocol Heparin Sodium (Porcine) (Heparin) 5,000 units SC Q12 [facility] Last Admin: 06/26/18 10:24 Dose: 5,000 units Home Med (Rivastigmine [Exelon 13.3 Mg/24 Hr Patch]) 13.3 mg TD DAILY [facility] Last Admin: 06/26/18 14:54 Dose: 13.3 mg Azithromycin 500 mg/ Sodium (Chloride) 250 mls @ 250 mls/hr IVPB Q24H [facility]; Protocol Ceftriaxone Sodium 1 gm/ (Sodium Chloride) 100 mls @ 100 mls/hr IVPB DAILY [facility]; Protocol Last Admin: 06/26/18 05:40 Dose: 100 mls/hr Dextrose (Dextrose 5% In Water 1000 Ml) 1,000 mls @ 0 mls/hr IV .Q0M PRN; Protocol PRN Reason: Hypoglycemia Protocol Dextrose/Sodium Chloride (Dextrose 5%/0.45% Ns 1000 Ml) 1,000 mls @ 80 mls/hr IV .[id number] [facility] Last Admin: 06/26/18 14:54 Dose: 80 mls/hr Insulin Aspart (Novolog) 0 unit SC ACHS [facility]; Protocol Memantine (Namenda) 10 mg PO BID [facility] Last Admin: 06/26/18 10:24 Dose: 10 mg Morphine Sulfate (Morphine) 2 mg IVP Q4 PRN PRN Reason: Pain, moderate (4-7) Last Admin: 06/26/18 05:50 Dose: 2 mg Ondansetron HCl (Zofran Inj) 4 mg IVP Q6 PRN PRN Reason: Nausea/Vomiting Last Admin: 06/26/18 08:27 Dose: 4 mg Pantoprazole Sodium (Protonix Inj) 40 mg IVP DAILY [facility] Last Admin: 06/26/18 10:24 Dose: 40 mg Rosuvastatin Calcium (Crestor) 5 mg PO HS [facility] Results - Vital Signs Recent Vital Signs: Last Vital Signs Temp 97.9 F 06/26/18 07:06 Pulse 66 06/26/18 09:04 Resp 20 06/26/18 07:06 BP 134/66 06/26/18 07:06 Pulse Ox 94 L 06/26/18 07:06 - Labs Result Diagrams: 06/25/18 22:36 06/25/18 22:36 Labs: Laboratory Results - last 24 hr 06/25/18 06/25/18 06/25/18 21:49 22:36 22:36 WBC 7.6 D RBC 4.50 Hgb 14.2 Hct 42.4 MCV 94.1 MCH 31.5 H MCHC 33.4 RDW 14.2 Plt Count 178 MPV 10.9 Neut % (Auto) 68.2 Lymph % (Auto) 23.4 [place] % (Auto) 7.7 Eos % (Auto) 0.3 Baso % (Auto) 0.4 Neut # (Auto) 5.2 Lymph # (Auto) 1.8 [place] # (Auto) 0.6 Eos # (Auto) 0.0 Baso # (Auto) 0.0 PT 12.5 H INR 1.1 APTT 32 Sodium Potassium Chloride Carbon Dioxide Anion Gap BUN Creatinine Est GFR ( Amer) Est GFR (Non-Af Amer) POC Glucose (mg/dL) 168 H Random Glucose Calcium Total Bilirubin AST ALT Alkaline Phosphatase Total Protein Albumin Globulin Albumin/Globulin Ratio Lipase Urine Color Urine Clarity Urine pH Ur Specific [place] Urine Protein Urine Glucose (UA) Urine Ketones Urine Blood Urine Nitrate Urine Bilirubin Urine Urobilinogen Ur Leukocyte Esterase Urine WBC (Auto) Urine RBC (Auto) Ur Squamous Epith Cells Hyaline Casts Influenza Typ A,B (EIA) 06/25/18 06/25/18 06/26/18 22:36 23:51 11:32 WBC RBC Hgb Hct MCV MCH MCHC RDW Plt Count MPV Neut % (Auto) Lymph % (Auto) [place] % (Auto) Eos % (Auto) Baso % (Auto) Neut # (Auto) Lymph # (Auto) [place] # (Auto) Eos # (Auto) Baso # (Auto) PT INR APTT Sodium 142 Potassium 4.3 Chloride 107 Carbon Dioxide 25 Anion Gap 14 BUN 18 H Creatinine 0.7 Est GFR ( Amer) > 60 Est GFR (Non-Af Amer) > 60 POC Glucose (mg/dL) Random Glucose 165 H Calcium 9.7 Total Bilirubin 0.5 AST 35 ALT 26 Alkaline Phosphatase 68 Total Protein 8.5 H Albumin 5.1 H D Globulin 3.4 Albumin/Globulin Ratio 1.5 Lipase 75 Urine Color Yellow Urine Clarity Clear Urine pH 5.0 Ur Specific [place] 1.012 Urine Protein Negative Urine Glucose (UA) Normal Urine Ketones Negative Urine Blood Negative Urine Nitrate Negative Urine Bilirubin Negative Urine Urobilinogen Normal Ur Leukocyte Esterase 2+ H Urine WBC (Auto) 2 Urine RBC (Auto) 1 Ur Squamous Epith Cells < 1 Hyaline Casts 0-2 Influenza Typ A,B (EIA) Negative for flu a/b
[2018-06-26] MEDS: (Novolog) Insulin Aspart, Recombinant 100 u/ml 10 ml vial SC SCH ×2 (17:33→22:38)
[2018-06-26 17:34] LABS: BASO % 0.4 % (0.0-2.0); EOS # 0.2 K/uL (0.0-0.7); EOS % 2.7 % (0.0-4.0); HEMOGLOBIN 12.5 g/dL (11.0-16.0); LYMPH # 2.4 K/uL (1.0-4.3); LYMPH % 31.7 % (20.0-40.0); MEAN CELL VOLUME 93.3 fL (81.0-99.0); MEAN CORPUSCULAR HEMOGLOBIN 30.3 pg (27.0-31.0); MEAN CORPUSCULAR HGB CONC 32.5 g/dL (33.0-37.0); MEAN PLATELET VOLUME 10.8 fL (7.2-11.7); MONO # 0.6 K/uL (0.0-0.8); MONO % 7.9 % (0.0-10.0); NEUT # 4.4 K/uL (1.8-7.0); NEUT % 57.3 % (50.0-75.0); RBC 4.14 Mil/uL (3.80-5.20); RED CELL DISTRIBUTION WIDTH 14.2 % (11.5-14.5); WHITE BLOOD COUNT 7.6 K/uL (4.8-10.8)
--- NOTE | 2018-06-26 17:53 | CARD ---
APPROVED REPORT Date of service: 06/25/2018 EKG Measurement Heart [id number] <Conclusion> Sinus rhythm with marked sinus arrhythmia Nonspecific intraventricular block Abnormal ECG
[2018-06-27] MEDS: Dextrose 5%/0.45% NS 1,000 ML IV SCH ×2 (03:30→21:33)
--- NOTE | 2018-06-27 05:02 | CP.PCM.HP ---
History of Present Illness - History of Present Illness History of Present Illness: CC abdominal pain with nausea and vomitting HPI 77 year old female is brought to the ED by her daughter for evaluation of abdominal pain associated with vomit and diarrhea since this morning. Patient states she felt light headed and dizzy. Upon arrival patient was actively dry heaving in the ED. Patient denies fever, chills, dysuria, hematuria, rash, recent travel, sick contacts Present on Admission - Present on Admission Any Indicators Present on Admission: Yes History of Uncontrolled Diabetes: Yes Review of Systems - Constitutional Constitutional: Anorexia - EENT Eyes: absent: Discharge Ears: Dizziness. absent: Ear Pain, Tinnitus - Breasts Breasts: absent: Pain, Nipple Discharge - Cardiovascular Cardiovascular: absent: Chest Pain, Dyspnea on Exertion - Respiratory Respiratory: Cough. absent: Dyspnea, Wheezing - Gastrointestinal Gastrointestinal: Abdominal Pain, Cramping, Diarrhea, Nausea, Vomiting - Musculoskeletal Musculoskeletal: absent: Tingling - Endocrine Endocrine: Polydipsia, Polyphagia Past Patient History - Infectious Disease Hx of Infectious Diseases: None - Past Medical History & Family History Past Medical History?: Yes - Past Social History Smoking Status: Never Smoked - CARDIAC Hx Hypercholesterolemia: Yes Hx Hypertension: Yes - PULMONARY Hx Respiratory Disorders: No - NEUROLOGICAL Hx Dementia: Yes - HEENT Hx HEENT Problems: Yes Hx Cataracts: Yes (BILAT.) - RENAL Hx Chronic Kidney Disease: No - ENDOCRINE/METABOLIC Hx Endocrine Disorders: Yes Hx Diabetes Mellitus Type 2: Yes - HEMATOLOGICAL/ONCOLOGICAL Hx Blood Disorders: No - INTEGUMENTARY Hx Dermatological Problems: No - MUSCULOSKELETAL/RHEUMATOLOGICAL Hx Arthritis: Yes Hx Falls: Yes - GASTROINTESTINAL Hx Gastrointestinal Disorders: Yes Hx Liver Failure: Yes ("SLIGHTLY ENLARGED") - GENITOURINARY/GYNECOLOGICAL Hx Genitourinary Disorders: Yes Hx Incontinence: Yes - PSYCHIATRIC Hx Substance Use: No - SURGICAL HISTORY Hx Surgeries: Yes Hx Cataract Extraction: Yes (BILAT.) - ANESTHESIA Hx Anesthesia: No Hx Anesthesia Reactions: Yes (VOMITING) Hx Malignant Hyperthermia: No Meds Allergies/Adverse Reactions: Allergies Allergy/AdvReac Type Severity Reaction Status Date / Time losartan Allergy Severe ANGIOEDEMA Verified 06/25/18 21:51 aspirin Allergy Intermediate NAUSEA Verified 06/25/18 21:51 Physical Exam - Constitutional Appears: Older Than Stated Age, Cachectic, Chronically Ill - Head Exam Head Exam: NORMAL INSPECTION - Eye Exam Eye Exam: absent: Scleral icterus - ENT Exam ENT Exam: Mucous Membranes Moist - Neck Exam Neck exam: Positive for: Full Rom. Negative for: Lymphadenopathy - Respiratory Exam Respiratory Exam: Decreased Breath Sounds - Cardiovascular Exam Cardiovascular Exam: REGULAR RHYTHM. absent: Diastolic murmur - GI/Abdominal Exam GI & Abdominal Exam: Soft, Tenderness - Extremities Exam Extremities exam: Negative for: pedal edema - Neurological Exam Neurological exam: Alert, Oriented x3 Results - Vital Signs Recent Vital Signs: Last Vital Signs Temp 98.2 F 06/26/18 23:20 Pulse 58 L 06/26/18 23:20 Resp 20 06/26/18 23:20 BP 161/72 H 06/26/18 23:20 Pulse Ox 98 06/26/18 23:20 - Labs Result Diagrams: 06/26/18 17:24 06/25/18 22:36 Labs: Laboratory Results - last 24 hr 06/26/18 06/26/18 06/26/18 07:56 11:26 11:32 WBC RBC Hgb Hct MCV MCH MCHC RDW Plt Count MPV Neut % (Auto) Lymph % (Auto) [place] % (Auto) Eos % (Auto) Baso % (Auto) Neut # (Auto) Lymph # (Auto) [place] # (Auto) Eos # (Auto) Baso # (Auto) POC Glucose (mg/dL) 146 H 119 H Influenza Typ A,B (EIA) Negative for flu a/b Ur L.pneumophila Ag 06/26/18 06/26/18 06/26/18 14:10 16:42 17:24 WBC 7.6 RBC 4.14 Hgb 12.5 Hct 38.6 MCV 93.3 MCH 30.3 MCHC 32.5 L RDW 14.2 Plt Count 143 MPV 10.8 Neut % (Auto) 57.3 Lymph % (Auto) 31.7 [place] % (Auto) 7.9 Eos % (Auto) 2.7 Baso % (Auto) 0.4 Neut # (Auto) 4.4 Lymph # (Auto) 2.4 [place] # (Auto) 0.6 Eos # (Auto) 0.2 Baso # (Auto) 0.0 POC Glucose (mg/dL) 138 H Influenza Typ A,B (EIA) Ur L.pneumophila Ag Negative 06/26/18 21:03 WBC RBC Hgb Hct MCV MCH MCHC RDW Plt Count MPV Neut % (Auto) Lymph % (Auto) [place] % (Auto) Eos % (Auto) Baso % (Auto) Neut # (Auto) Lymph # (Auto) [place] # (Auto) Eos # (Auto) Baso # (Auto) POC Glucose (mg/dL) 137 H Influenza Typ A,B (EIA) Ur L.pneumophila Ag Assessment & Plan - Assessment and Plan (Free Text) Assessment: r/o Acute abdomen Acute gastroparesis Acute gastroenteritis Aspiration pneumonia T2dm Plan: Empiric Abtx treatment Septic work-up Surgical consult with Dr Medrano GI consult with Dr Jonas ID consult with Dr Crenshaw Pulmonary consult with Dr Mirza - Date & Time Date: 06/26/18 Time: 09:00
[2018-06-27] MEDS: Azithromycin 500 MG in Sodium Chloride 0.9% 250 ML IVPB SCH (05:30)
[2018-06-27 08:07] LABS: BLOOD UREA NITROGEN 10 mg/dL (7-17); CALCIUM 8.6 mg/dl (8.6-10.4); GFR NON-AFRICAN AMERICAN > 60
[2018-06-27] MEDS: (Novolog) Insulin Aspart, Recombinant 100 u/ml 10 ml vial SC SCH ×4 (08:20→21:34)
[2018-06-27] MEDS: RIVASTIGMINE 13.3 MG TD SCH (10:54)
[2018-06-27 11:35] LABS: C DIFF TOXIN A B NEGATIVE (NEGATIVE)
[2018-06-27] MEDS ORDERED: Influenza Vaccine 60 mcg/0.5 mL SYR (4YR UP) IM ONE (14:00)
[2018-06-27] MEDS ORDERED: Pneumococcal 23-Valent Vaccine IM ONE (14:00)
[2018-06-27 15:44] LABS: FECAL LEUKOCYTES NEGATIVE (NEGATIVE)
--- NOTE | 2018-06-27 18:24 | CP.PCM.PN ---
Subjective - Date & Time of Evaluation Date of Evaluation: 06/27/18 Time of Evaluation: 18:24 - Subjective Subjective: Pulmonary follow up, Covering Dr Mirza The Patient was seen and examined at the bedside, Medical records reviewed, and management issues were discussed and formulated with the house staff. Events reviewed Patient is 77 years old female with past medical history of hypertension, hyper by out tonight cholesterolemia, osteoporosis and dementia who wa brennon to the emergency room with the daughter for evaluation of abdomin al pain nausea, vomiting and diarrhea for 1 days Patient also stated that she felt dizzy and lightheaded [facility] consultant for managements of aspiration pneumonia She was started on antibiotic On today's exam she is awake she is comfortable in no apparent distress Patient stated that her cough has improved denies chest pain or shortness of breath No fever/chills - Blood cultures x2 negative - Urine legionella antigen - Influenza A & B negative CXR: 06/26/2018 FINDINGS: LUNGS: No consolidation. The 2 to 3 mm mid right lung zone referenced nodular opacity is stable since 2017. No interval worrisome pathology suggested. PLEURA: No significant pleural effusion identified, no pneumothorax apparent. CARDIOVASCULAR: There is presence of aortic atherosclerotic calcification on x-ray. Tortuous unfolded prominence to the thoracic aorta noted. Normal cardiac size. No pulmonary vascular congestion. OSSEOUS STRUCTURES: Thoraco lumbar spondylosis. Bilateral shoulder arthrosis VISUALIZED UPPER ABDOMEN: Normal. IMPRESSION: No active disease. No interval pathology noted Objective - Vital Signs/Intake and Output Vital Signs (last 24 hours): Temp Pulse Resp BP Pulse Ox 98.4 F 65 20 158/69 H 100 06/27/18 15:05 06/27/18 15:05 06/27/18 15:05 06/27/18 15:05 06/27/18 15:05 Intake and Output: 06/27/18 06/27/18 06:59 18:59 Intake Total 1700 680 Balance 1700 680 - Medications Medications: Current Medications Dextrose (Dextrose 50% Inj) 0 ml IV STAT PRN; Protocol PRN Reason: Hypoglycemia Protocol Dextrose (Glutose 15) 0 gm PO ONCE PRN; Protocol PRN Reason: Hypoglycemia Protocol Folic Acid (Folic Acid) 1 mg PO DAILY [facility] Last Admin: 06/27/18 10:30 Dose: Not Given Glucagon (Glucagen Diagnostic Kit) 0 mg IM STAT PRN; Protocol PRN Reason: Hypoglycemia Protocol Heparin Sodium (Porcine) (Heparin) 5,000 units SC Q12 [facility] Last Admin: 06/27/18 10:34 Dose: 5,000 units Home Med (Rivastigmine [Exelon 13.3 Mg/24 Hr Patch]) 13.3 mg TD DAILY [facility] Last Admin: 06/27/18 10:54 Dose: 13.3 mg Azithromycin 500 mg/ Sodium (Chloride) 250 mls @ 250 mls/hr IVPB Q24H [facility]; Protocol Ceftriaxone Sodium 1 gm/ (Sodium Chloride) 100 mls @ 100 mls/hr IVPB DAILY [facility]; Protocol Last Admin: 06/27/18 10:37 Dose: 100 mls/hr Dextrose (Dextrose 5% In Water 1000 Ml) 1,000 mls @ 0 mls/hr IV .Q0M PRN; Protocol PRN Reason: Hypoglycemia Protocol Dextrose/Sodium Chloride (Dextrose 5%/0.45% Ns 1000 Ml) 1,000 mls @ 80 mls/hr IV .[id number] [facility] Last Admin: 06/27/18 03:30 Dose: 80 mls/hr Insulin Aspart (Novolog) 0 unit SC ACHS [facility]; Protocol Last Admin: 06/27/18 12:05 Dose: Not Given Losartan Potassium (Cozaar) 25 mg PO DAILY [facility] Last Admin: 06/27/18 12:21 Dose: 25 mg Memantine (Namenda) 10 mg PO BID [facility] Last Admin: 06/27/18 12:21 Dose: 10 mg Morphine Sulfate (Morphine) 2 mg IVP Q4 PRN PRN Reason: Pain, moderate (4-7) Last Admin: 06/26/18 05:50 Dose: 2 mg Ondansetron HCl (Zofran Inj) 4 mg IVP Q6 PRN PRN Reason: Nausea/Vomiting Last Admin: 06/26/18 08:27 Dose: 4 mg Pantoprazole Sodium (Protonix Inj) 40 mg IVP DAILY [facility] Last Admin: 06/27/18 10:34 Dose: 40 mg Rosuvastatin Calcium (Crestor) 5 mg PO HS [facility] Last Admin: 06/26/18 21:14 Dose: 5 mg - Labs Labs: 06/26/18 17:24 06/27/18 07:20 PT 12.5 SECONDS (9.7-12.2) H 06/25/18 22:36 INR 1.1 03/04/19 22:36 APTT 32 SECONDS (21-34) 06/25/18 22:36 - Constitutional Appears: Well, Non-toxic, No Acute Distress - Head Exam Head Exam: ATRAUMATIC, NORMAL INSPECTION - Neck Exam Neck Exam: Full ROM, Normal Inspection - Respiratory Exam Respiratory Exam: Decreased Breath Sounds, Rhonchi. absent: Accessory Muscle Use, Chest Wall Tenderness, Rales - Cardiovascular Exam Cardiovascular Exam: REGULAR RHYTHM, +S1, +S2. absent: Murmur - GI/Abdominal Exam GI & Abdominal Exam: Soft, Normal Bowel Sounds. absent: Tenderness Assessment and Plan (1) Aspiration pneumonia Assessment & Plan: - Continue IV antibiotics with Azithromycin 500 mg IVPB Q24H [facility] Ceftriaxone Sodium 1 gm IVPB DAILY [facility] - f/u CXR repeat - Blood cultures x2 negative - Urine legionella antigen - Influenza A & B negative - Check urine legionella and pneumococcus/strep antigen - Check mycoplasma titer Status: Acute (2) Opacity of lung on imaging study Assessment & Plan: CXR 06/26/2018: The 2 to 3 mm mid right lung zone referenced nodular opacity is stable since 2017. No interval worrisome pathology suggested. Status: Acute (3) Abdominal pain Status: Acute
--- NOTE | 2018-06-27 19:03 | CP.PCM.PN ---
Subjective - Date & Time of Evaluation Date of Evaluation: 06/27/18 Time of Evaluation: 08:00 - Subjective Subjective: 77 year old female is brought to the ED by her daughter for evaluation of abdominal pain associated with vomit and diarrhea since this morning. Patient states she felt light headed and dizzy. Upon arrival patient was actively dry heaving in the ED. Patient denies fever, chills, dysuria, hematuria, rash, recent travel, sick contacts. Referred for ID eval of pneumonia possibly secondary to aspiration Objective - Vital Signs/Intake and Output Vital Signs (last 24 hours): Temp Pulse Resp BP Pulse Ox 98.4 F 65 20 158/69 H 100 06/27/18 15:05 06/27/18 15:05 06/27/18 15:05 06/27/18 15:05 06/27/18 15:05 Intake and Output: 06/27/18 06/28/18 18:59 06:59 Intake Total 680 Balance 680 - Medications Medications: Current Medications Dextrose (Dextrose 50% Inj) 0 ml IV STAT PRN; Protocol PRN Reason: Hypoglycemia Protocol Dextrose (Glutose 15) 0 gm PO ONCE PRN; Protocol PRN Reason: Hypoglycemia Protocol Folic Acid (Folic Acid) 1 mg PO DAILY [facility] Last Admin: 06/27/18 10:30 Dose: Not Given Glucagon (Glucagen Diagnostic Kit) 0 mg IM STAT PRN; Protocol PRN Reason: Hypoglycemia Protocol Heparin Sodium (Porcine) (Heparin) 5,000 units SC Q12 [facility] Last Admin: 06/27/18 10:34 Dose: 5,000 units Home Med (Rivastigmine [Exelon 13.3 Mg/24 Hr Patch]) 13.3 mg TD DAILY [facility] Last Admin: 06/27/18 10:54 Dose: 13.3 mg Azithromycin 500 mg/ Sodium (Chloride) 250 mls @ 250 mls/hr IVPB Q24H [facility]; Protocol Ceftriaxone Sodium 1 gm/ (Sodium Chloride) 100 mls @ 100 mls/hr IVPB DAILY [facility]; Protocol Last Admin: 06/27/18 10:37 Dose: 100 mls/hr Dextrose (Dextrose 5% In Water 1000 Ml) 1,000 mls @ 0 mls/hr IV .Q0M PRN; Protocol PRN Reason: Hypoglycemia Protocol Dextrose/Sodium Chloride (Dextrose 5%/0.45% Ns 1000 Ml) 1,000 mls @ 80 mls/hr IV .[id number] [facility] Last Admin: 06/27/18 03:30 Dose: 80 mls/hr Insulin Aspart (Novolog) 0 unit SC ACHS [facility]; Protocol Last Admin: 06/27/18 18:26 Dose: Not Given Losartan Potassium (Cozaar) 25 mg PO DAILY [facility] Last Admin: 06/27/18 12:21 Dose: 25 mg Memantine (Namenda) 10 mg PO BID [facility] Last Admin: 06/27/18 18:25 Dose: 10 mg Morphine Sulfate (Morphine) 2 mg IVP Q4 PRN PRN Reason: Pain, moderate (4-7) Last Admin: 06/26/18 05:50 Dose: 2 mg Ondansetron HCl (Zofran Inj) 4 mg IVP Q6 PRN PRN Reason: Nausea/Vomiting Last Admin: 06/26/18 08:27 Dose: 4 mg Pantoprazole Sodium (Protonix Inj) 40 mg IVP DAILY [facility] Last Admin: 06/27/18 10:34 Dose: 40 mg Rosuvastatin Calcium (Crestor) 5 mg PO HS [facility] Last Admin: 06/26/18 21:14 Dose: 5 mg - Labs Labs: 06/26/18 17:24 06/27/18 07:20 PT 12.5 SECONDS (9.7-12.2) H 06/25/18 22:36 INR 1.1 06/25/18 22:36 APTT 32 SECONDS (21-34) 06/25/18 22:36 - Constitutional Appears: Chronically Ill - Head Exam Head Exam: ATRAUMATIC, NORMAL INSPECTION, NORMOCEPHALIC - Eye Exam Eye Exam: EOMI, Normal appearance, PERRL Pupil Exam: NORMAL ACCOMODATION, PERRL - ENT Exam ENT Exam: Mucous Membranes Moist, Normal Exam - Neck Exam Neck Exam: Full ROM, Normal Inspection. absent: Lymphadenopathy - Respiratory Exam Respiratory Exam: Clear to Ausculation Bilateral, NORMAL BREATHING PATTERN - Cardiovascular Exam Cardiovascular Exam: REGULAR RHYTHM, +S1, +S2. absent: Murmur - GI/Abdominal Exam GI & Abdominal Exam: Soft, Normal Bowel Sounds. absent: Tenderness - Rectal Exam Rectal Exam: Deferred - Exam Exam: NORMAL INSPECTION - Extremities Exam Extremities Exam: Full ROM, Normal Capillary Refill, Normal Inspection. absent: Joint Swelling, Pedal Edema - Back Exam Back Exam: NORMAL INSPECTION - Neurological Exam Neurological Exam: Alert, Awake, CN II-XII Intact, Normal Gait, Oriented x3 - Psychiatric Exam Psychiatric exam: Normal Affect, Normal Mood - Skin Skin Exam: Dry, Intact, Normal Color, Warm Assessment and Plan (1) Abdominal pain Status: Acute (2) Aspiration pneumonia Status: Acute (3) Gastroparesis Status: Acute (4) Ileus Status: Acute (5) Nausea Status: Acute (6) Vomiting Status: Acute - Assessment and Plan (Free Text) Assessment: cultures reviewed orders signed
[2018-06-28] MEDS: Azithromycin 500 MG in Sodium Chloride 0.9% 250 ML IVPB SCH (05:06)
[2018-06-28] MEDS: (Novolog) Insulin Aspart, Recombinant 100 u/ml 10 ml vial SC SCH ×4 (07:44→21:30)
[2018-06-28] MEDS: RIVASTIGMINE 13.3 MG TD SCH (09:29)
[2018-06-28] MEDS ORDERED: Lactated Ringer's 1,000 ML IV ONE (14:35)
[2018-06-28] MEDS ORDERED: Propofol 10 mg/ml Inj (20 ML) ONE (14:43)
[2018-06-28] MEDS ORDERED: Lidocaine Hydrochloride 5 ML INJ ONE (14:44)
[2018-06-28] MEDS ORDERED: Etomidate 20 mg/10ml Inj IV ONE (14:44)
[2018-06-28] MEDS ORDERED: Labetalol 25mg/5ml Syringe ONE (14:58)
--- NOTE | 2018-06-28 17:00 | CP.PCM.PN ---
Subjective - Date & Time of Evaluation Date of Evaluation: 06/28/18 Time of Evaluation: 16:58 - Subjective Subjective: Pulmonary follow up, Covering Dr Mirza The Patient was seen and examined at the bedside, Medical records reviewed, and management issues were discussed and formulated with the house staff. Events reviewed Patient is 77 years old female with past medical history of hypertension, hyper by out tonight cholesterolemia, osteoporosis and dementia who wa brennon to the emergency room with the daughter for evaluation of abdomin al pain nausea, vomiting and diarrhea for 1 days Patient also stated that she felt dizzy and lightheaded Pulmonary information consultant for managements of aspiration pneumonia She was started on antibiotic On today's exam she is awake she is comfortable in no apparent distress Patient stated that her cough has improved denies chest pain or shortness of breath No fever/chills - Blood cultures x2 negative - Urine legionella antigen - Influenza A & B negative CXR: 06/26/2018 FINDINGS: LUNGS: No consolidation. The 2 to 3 mm mid right lung zone referenced nodular opacity is stable since 2017. No interval worrisome pathology suggested. PLEURA: No significant pleural effusion identified, no pneumothorax apparent. CARDIOVASCULAR: There is presence of aortic atherosclerotic calcification on x-ray. Tortuous unfolded prominence to the thoracic aorta noted. Normal cardiac size. No pulmonary vascular congestion. OSSEOUS STRUCTURES: Thoraco lumbar spondylosis. Bilateral shoulder arthrosis VISUALIZED UPPER ABDOMEN: Normal. IMPRESSION: No active disease. No interval pathology noted Objective - Vital Signs/Intake and Output Vital Signs (last 24 hours): Temp Pulse Resp BP Pulse Ox 97.8 F 65 15 158/65 H 99 06/28/18 14:57 06/28/18 15:27 06/28/18 15:27 06/28/18 15:27 06/28/18 15:27 Intake and Output: 06/28/18 06/28/18 06:59 18:59 Intake Total 1600 560 Output Total 700 600 Balance 900 -40 - Medications Medications: Current Medications Dextrose (Dextrose 50% Inj) 0 ml IV STAT PRN; Protocol PRN Reason: Hypoglycemia Protocol Dextrose (Glutose 15) 0 gm PO ONCE PRN; Protocol PRN Reason: Hypoglycemia Protocol Folic Acid (Folic Acid) 1 mg PO DAILY [facility] Last Admin: 06/28/18 09:30 Dose: 1 mg Glucagon (Glucagen Diagnostic Kit) 0 mg IM STAT PRN; Protocol PRN Reason: Hypoglycemia Protocol Heparin Sodium (Porcine) (Heparin) 5,000 units SC Q12 [facility] Last Admin: 06/28/18 11:06 Dose: Not Given Home Med (Rivastigmine [Exelon 13.3 Mg/24 Hr Patch]) 13.3 mg TD DAILY [facility] Last Admin: 06/28/18 09:29 Dose: 13.3 mg Azithromycin 500 mg/ Sodium (Chloride) 250 mls @ 250 mls/hr IVPB Q24H [facility]; Protocol Last Admin: 06/28/18 05:06 Dose: 250 mls/hr Ceftriaxone Sodium 1 gm/ (Sodium Chloride) 100 mls @ 100 mls/hr IVPB DAILY [facility]; Protocol Last Admin: 06/28/18 11:01 Dose: 100 mls/hr Dextrose (Dextrose 5% In Water 1000 Ml) 1,000 mls @ 0 mls/hr IV .Q0M PRN; Protocol PRN Reason: Hypoglycemia Protocol Dextrose/Sodium Chloride (Dextrose 5%/0.45% Ns 1000 Ml) 1,000 mls @ 80 mls/hr IV .[id number] [facility] Last Admin: 06/27/18 21:33 Dose: 80 mls/hr Insulin Aspart (Novolog) 0 unit SC ACHS [facility]; Protocol Last Admin: 06/28/18 13:05 Dose: Not Given Losartan Potassium (Cozaar) 25 mg PO DAILY [facility] Last Admin: 06/28/18 09:30 Dose: 25 mg Memantine (Namenda) 10 mg PO BID [facility] Last Admin: 06/28/18 09:30 Dose: 10 mg Morphine Sulfate (Morphine) 2 mg IVP Q4 PRN PRN Reason: Pain, moderate (4-7) Last Admin: 06/26/18 05:50 Dose: 2 mg Ondansetron HCl (Zofran Inj) 4 mg IVP Q6 PRN PRN Reason: Nausea/Vomiting Last Admin: 06/26/18 08:27 Dose: 4 mg Pantoprazole Sodium (Protonix Inj) 40 mg IVP DAILY [facility] Last Admin: 06/28/18 09:30 Dose: 40 mg Rosuvastatin Calcium (Crestor) 5 mg PO HS [facility] Last Admin: 06/27/18 21:34 Dose: 5 mg - Labs Labs: 06/26/18 17:24 06/27/18 07:20 PT 12.5 SECONDS (9.7-12.2) H 06/25/18 22:36 INR 1.1 06/25/18 22:36 APTT 32 SECONDS (21-34) 06/25/18 22:36 - Constitutional Appears: Well, Non-toxic - Head Exam Head Exam: ATRAUMATIC, NORMAL INSPECTION, NORMOCEPHALIC - Eye Exam Eye Exam: EOMI, Normal appearance Pupil Exam: NORMAL ACCOMODATION - ENT Exam ENT Exam: Mucous Membranes Moist - Neck Exam Neck Exam: Normal Inspection - Respiratory Exam Respiratory Exam: Clear to Ausculation Bilateral, NORMAL BREATHING PATTERN - Cardiovascular Exam Cardiovascular Exam: REGULAR RHYTHM, +S1, +S2. absent: Murmur - GI/Abdominal Exam GI & Abdominal Exam: Soft, Normal Bowel Sounds. absent: Tenderness Assessment and Plan (1) Aspiration pneumonia Assessment & Plan: - Continue IV antibiotics with Azithromycin 500 mg IVPB Q24H [facility] Ceftriaxone Sodium 1 gm IVPB DAILY [facility] - f/u CXR repeat - Blood cultures x2 negative - Urine legionella antigen - Influenza A & B negative - Check urine legionella and pneumococcus/strep antigen - Check mycoplasma titer Status: Acute (2) Opacity of lung on imaging study Assessment & Plan: CXR 06/26/2018: The 2 to 3 mm mid right lung zone referenced nodular opacity is stable since 2017. No interval worrisome pathology suggested. Status: Acute (3) Abdominal pain Status: Acute
--- NOTE | 2018-06-28 19:37 | CP.PCM.PN ---
Subjective - Date & Time of Evaluation Date of Evaluation: 06/28/18 Time of Evaluation: 08:00 - Subjective Subjective: nad less cough less SOB Objective - Vital Signs/Intake and Output Vital Signs (last 24 hours): Temp Pulse Resp BP Pulse Ox 98 F 96 H 20 154/71 H 96 06/28/18 16:00 06/28/18 16:00 06/28/18 16:00 06/28/18 16:00 06/28/18 16:00 Intake and Output: 06/28/18 06/29/18 18:59 06:59 Intake Total 560 Output Total 600 Balance -40 - Medications Medications: Current Medications Dextrose (Dextrose 50% Inj) 0 ml IV STAT PRN; Protocol PRN Reason: Hypoglycemia Protocol Dextrose (Glutose 15) 0 gm PO ONCE PRN; Protocol PRN Reason: Hypoglycemia Protocol Folic Acid (Folic Acid) 1 mg PO DAILY [facility] Last Admin: 06/28/18 09:30 Dose: 1 mg Glucagon (Glucagen Diagnostic Kit) 0 mg IM STAT PRN; Protocol PRN Reason: Hypoglycemia Protocol Heparin Sodium (Porcine) (Heparin) 5,000 units SC Q12 [facility] Last Admin: 06/28/18 11:06 Dose: Not Given Home Med (Rivastigmine [Exelon 13.3 Mg/24 Hr Patch]) 13.3 mg TD DAILY [facility] Last Admin: 06/28/18 09:29 Dose: 13.3 mg Azithromycin 500 mg/ Sodium (Chloride) 250 mls @ 250 mls/hr IVPB Q24H [facility]; Protocol Last Admin: 06/28/18 05:06 Dose: 250 mls/hr Ceftriaxone Sodium 1 gm/ (Sodium Chloride) 100 mls @ 100 mls/hr IVPB DAILY [facility]; Protocol Last Admin: 06/28/18 11:01 Dose: 100 mls/hr Dextrose (Dextrose 5% In Water 1000 Ml) 1,000 mls @ 0 mls/hr IV .Q0M PRN; Protocol PRN Reason: Hypoglycemia Protocol Insulin Aspart (Novolog) 0 unit SC ACHS [facility]; Protocol Last Admin: 06/28/18 18:27 Dose: 2 units Losartan Potassium (Cozaar) 25 mg PO DAILY [facility] Last Admin: 06/28/18 09:30 Dose: 25 mg Memantine (Namenda) 10 mg PO BID [facility] Last Admin: 03/07/19 17:17 Dose: 10 mg Morphine Sulfate (Morphine) 2 mg IVP Q4 PRN PRN Reason: Pain, moderate (4-7) Last Admin: 06/26/18 05:50 Dose: 2 mg Ondansetron HCl (Zofran Inj) 4 mg IVP Q6 PRN PRN Reason: Nausea/Vomiting Last Admin: 06/26/18 08:27 Dose: 4 mg Pantoprazole Sodium (Protonix Inj) 40 mg IVP DAILY [facility] Last Admin: 06/28/18 09:30 Dose: 40 mg Rosuvastatin Calcium (Crestor) 5 mg PO HS [facility] Last Admin: 06/27/18 21:34 Dose: 5 mg - Labs Labs: 06/26/18 17:24 06/27/18 07:20 PT 12.5 SECONDS (9.7-12.2) H 06/25/18 22:36 INR 1.1 06/25/18 22:36 APTT 32 SECONDS (21-34) 06/25/18 22:36 - Constitutional Appears: Well - Head Exam Head Exam: ATRAUMATIC, NORMAL INSPECTION, NORMOCEPHALIC - Eye Exam Eye Exam: EOMI, Normal appearance, PERRL Pupil Exam: NORMAL ACCOMODATION, PERRL - ENT Exam ENT Exam: Mucous Membranes Moist, Normal Exam - Neck Exam Neck Exam: Full ROM, Normal Inspection. absent: Lymphadenopathy - Respiratory Exam Respiratory Exam: Clear to Ausculation Bilateral, NORMAL BREATHING PATTERN - Cardiovascular Exam Cardiovascular Exam: REGULAR RHYTHM, +S1, +S2. absent: Murmur - GI/Abdominal Exam GI & Abdominal Exam: Soft, Normal Bowel Sounds. absent: Tenderness - Rectal Exam Rectal Exam: Deferred - Exam Exam: NORMAL INSPECTION - Extremities Exam Extremities Exam: Full ROM, Normal Capillary Refill, Normal Inspection. absent: Joint Swelling, Pedal Edema - Back Exam Back Exam: NORMAL INSPECTION - Neurological Exam Neurological Exam: Alert, Awake, CN II-XII Intact, Normal Gait, Oriented x3 - Psychiatric Exam Psychiatric exam: Normal Affect, Normal Mood - Skin Skin Exam: Dry, Intact, Normal Color, Warm Assessment and Plan (1) Abdominal pain Status: Acute (2) Aspiration pneumonia Status: Acute (3) Gastroparesis Status: Acute (4) Ileus Status: Acute (5) Nausea Status: Acute (6) Vomiting Status: Acute - Assessment and Plan (Free Text) Assessment: cont IV rx Pulm follow up cultures reviewed- thus far negative
[2018-06-29] MEDS: Azithromycin 500 MG in Sodium Chloride 0.9% 250 ML IVPB SCH (05:25)
[2018-06-29 06:54] LABS: BASO % 0.4 % (0.0-2.0); EOS # 0.2 K/uL (0.0-0.7); EOS % 3.1 % (0.0-4.0); HEMOGLOBIN 13.4 g/dL (11.0-16.0); LYMPH # 2.2 K/uL (1.0-4.3); LYMPH % 28.2 % (20.0-40.0); MEAN CELL VOLUME 94.7 fL (81.0-99.0); MEAN CORPUSCULAR HEMOGLOBIN 31.6 pg (27.0-31.0); MEAN CORPUSCULAR HGB CONC 33.4 g/dL (33.0-37.0); MEAN PLATELET VOLUME 10.7 fL (7.2-11.7); MONO # 0.7 K/uL (0.0-0.8); MONO % 9.5 % (0.0-10.0); NEUT # 4.6 K/uL (1.8-7.0); NEUT % 58.8 % (50.0-75.0); NRBC % 0.1 % (0.0-2.0); RBC 4.23 Mil/uL (3.80-5.20); RED CELL DISTRIBUTION WIDTH 13.5 % (11.5-14.5); WHITE BLOOD COUNT 7.7 K/uL (4.8-10.8)
--- NOTE | 2018-06-29 07:33 | CP.PCM.PN ---
Subjective - Date & Time of Evaluation Date of Evaluation: 06/29/18 Time of Evaluation: 07:30 - Subjective Subjective: Patient denies having nausea, vomiting, diarrhea. She is now on a regular diet. Objective - Vital Signs/Intake and Output Vital Signs (last 24 hours): Temp Pulse Resp BP Pulse Ox 98.2 F 80 20 132/72 96 06/29/18 04:04 06/29/18 04:04 06/29/18 04:04 06/29/18 04:04 06/29/18 04:04 Intake and Output: 06/29/18 06/29/18 06:59 18:59 Intake Total 570 Balance 570 - Medications Medications: Current Medications Dextrose (Dextrose 50% Inj) 0 ml IV STAT PRN; Protocol PRN Reason: Hypoglycemia Protocol Dextrose (Glutose 15) 0 gm PO ONCE PRN; Protocol PRN Reason: Hypoglycemia Protocol Folic Acid (Folic Acid) 1 mg PO DAILY [facility] Last Admin: 06/28/18 09:30 Dose: 1 mg Glucagon (Glucagen Diagnostic Kit) 0 mg IM STAT PRN; Protocol PRN Reason: Hypoglycemia Protocol Heparin Sodium (Porcine) (Heparin) 5,000 units SC Q12 [facility] Last Admin: 06/28/18 21:07 Dose: 5,000 units Home Med (Rivastigmine [Exelon 13.3 Mg/24 Hr Patch]) 13.3 mg TD DAILY [facility] Last Admin: 06/28/18 09:29 Dose: 13.3 mg Azithromycin 500 mg/ Sodium (Chloride) 250 mls @ 250 mls/hr IVPB Q24H [facility]; Protocol Last Admin: 06/29/18 05:25 Dose: 250 mls/hr Ceftriaxone Sodium 1 gm/ (Sodium Chloride) 100 mls @ 100 mls/hr IVPB DAILY [facility]; Protocol Last Admin: 06/28/18 11:01 Dose: 100 mls/hr Dextrose (Dextrose 5% In Water 1000 Ml) 1,000 mls @ 0 mls/hr IV .Q0M PRN; Protocol PRN Reason: Hypoglycemia Protocol Insulin Aspart (Novolog) 0 unit SC ACHS [facility]; Protocol Last Admin: 06/28/18 21:30 Dose: Not Given Losartan Potassium (Cozaar) 25 mg PO DAILY [facility] Last Admin: 06/28/18 09:30 Dose: 25 mg Memantine (Namenda) 10 mg PO BID [facility] Last Admin: 06/28/18 17:17 Dose: 10 mg Morphine Sulfate (Morphine) 2 mg IVP Q4 PRN PRN Reason: Pain, moderate (4-7) Last Admin: 06/26/18 05:50 Dose: 2 mg Ondansetron HCl (Zofran Inj) 4 mg IVP Q6 PRN PRN Reason: Nausea/Vomiting Last Admin: 06/26/18 08:27 Dose: 4 mg Pantoprazole Sodium (Protonix Inj) 40 mg IVP DAILY [facility] Last Admin: 06/28/18 09:30 Dose: 40 mg Rosuvastatin Calcium (Crestor) 5 mg PO HS [facility] Last Admin: 06/28/18 21:06 Dose: 5 mg - Labs Labs: 06/29/18 06:48 06/27/18 07:20 PT 12.5 SECONDS (9.7-12.2) H 06/25/18 22:36 INR 1.1 06/25/18 22:36 APTT 32 SECONDS (21-34) 06/25/18 22:36 - Constitutional Appears: No Acute Distress - Head Exam Head Exam: ATRAUMATIC, NORMOCEPHALIC - Eye Exam Eye Exam: EOMI, PERRL - Neck Exam Neck Exam: absent: Lymphadenopathy, Thyromegaly - Respiratory Exam Respiratory Exam: NORMAL BREATHING PATTERN. absent: Rales, Rhonchi, Wheezes - Cardiovascular Exam Cardiovascular Exam: REGULAR RHYTHM, +S1, +S2. absent: Gallop, Rubs, Murmur - GI/Abdominal Exam GI & Abdominal Exam: Soft, Normal Bowel Sounds. absent: Tenderness, Mass, Organomegaly - Rectal Exam Rectal Exam: NORMAL INSPECTION - Extremities Exam Extremities Exam: Tenderness. absent: Calf Tenderness Additional comments: Erythema and tenderness left forearm at site of previous IV Assessment and Plan (1) Nausea and vomiting Assessment & Plan: Nausea, vomiting, diarrhea have resolved. Gastric emptying scan (my preliminary reading) shows no evidence of gastroparesis. EGD showed gastritis, but no evidence of peptic ulcer disease, gastric outlet obstruction, or gastroparesis. Stool for leukocytes, C diff, giardia, O+P were negative; C+S is pending. Paitent is stable for discharge from GI standpoint. Will sign off. Please call again if new GI problems develop. Status: Acute
[2018-06-29 08:18] VITALS: BP 174/76; PULSE 71; RESP 18; TEMP 98.3; O2SAT 95
[2018-06-29] MEDS: (Novolog) Insulin Aspart, Recombinant 100 u/ml 10 ml vial SC SCH ×3 (08:30→16:49)
[2018-06-29] MEDS: RIVASTIGMINE 13.3 MG TD SCH (10:12)
--- NOTE | 2018-06-29 12:57 | CP.PCM.PN ---
Subjective - Date & Time of Evaluation Date of Evaluation: 06/29/18 Time of Evaluation: 12:57 - Subjective Subjective: Pulmonary follow up, Covering Dr Mirza The Patient was seen and examined at the bedside, Medical records reviewed, and management issues were discussed and formulated with the house staff. Events reviewed Patient is 77 years old female with past medical history of hypertension, hyper by out tonight cholesterolemia, osteoporosis and dementia who wa brennon to the emergency room with the daughter for evaluation of abdomin al pain nausea, vomiting and diarrhea for 1 days Patient also stated that she felt dizzy and lightheaded Pulmonary consumer services consultant for managements of aspiration pneumonia She was started on antibiotic On today's exam she is awake she is comfortable in no apparent distress Patient stated that her cough has improved denies chest pain or shortness of breath No fever/chills - Blood cultures x2 negative - Urine legionella antigen - Influenza A & B negative CXR: 06/26/2018 FINDINGS: LUNGS: No consolidation. The 2 to 3 mm mid right lung zone referenced nodular opacity is stable since 2017. No interval worrisome pathology suggested. PLEURA: No significant pleural effusion identified, no pneumothorax apparent. CARDIOVASCULAR: There is presence of aortic atherosclerotic calcification on x-ray. Tortuous unfolded prominence to the thoracic aorta noted. Normal cardiac size. No pulmonary vascular congestion. OSSEOUS STRUCTURES: Thoraco lumbar spondylosis. Bilateral shoulder arthrosis VISUALIZED UPPER ABDOMEN: Normal. IMPRESSION: No active disease. No interval pathology noted Objective - Vital Signs/Intake and Output Vital Signs (last 24 hours): Temp Pulse Resp BP Pulse Ox 98.3 F 71 18 174/76 H 95 06/29/18 07:00 06/29/18 07:00 06/29/18 07:00 06/29/18 07:00 06/29/18 07:00 Intake and Output: 06/29/18 06/29/18 06:59 18:59 Intake Total 570 Balance 570 - Medications Medications: Current Medications Dextrose (Dextrose 50% Inj) 0 ml IV STAT PRN; Protocol PRN Reason: Hypoglycemia Protocol Dextrose (Glutose 15) 0 gm PO ONCE PRN; Protocol PRN Reason: Hypoglycemia Protocol Folic Acid (Folic Acid) 1 mg PO DAILY [facility] Last Admin: 06/29/18 09:26 Dose: 1 mg Glucagon (Glucagen Diagnostic Kit) 0 mg IM STAT PRN; Protocol PRN Reason: Hypoglycemia Protocol Home Med (Rivastigmine [Exelon 13.3 Mg/24 Hr Patch]) 13.3 mg TD DAILY [facility] Last Admin: 06/29/18 10:12 Dose: 13.3 mg Azithromycin 500 mg/ Sodium (Chloride) 250 mls @ 250 mls/hr IVPB Q24H [facility]; Protocol Last Admin: 06/29/18 05:25 Dose: 250 mls/hr Ceftriaxone Sodium 1 gm/ (Sodium Chloride) 100 mls @ 100 mls/hr IVPB DAILY [facility]; Protocol Last Admin: 06/29/18 10:10 Dose: 100 mls/hr Dextrose (Dextrose 5% In Water 1000 Ml) 1,000 mls @ 0 mls/hr IV .Q0M PRN; Protocol PRN Reason: Hypoglycemia Protocol Insulin Aspart (Novolog) 0 unit SC ACHS [facility]; Protocol Last Admin: 06/29/18 08:30 Dose: Not Given Losartan Potassium (Cozaar) 25 mg PO DAILY [facility] Last Admin: 06/29/18 09:26 Dose: 25 mg Memantine (Namenda) 10 mg PO BID [facility] Last Admin: 06/29/18 09:25 Dose: 10 mg Morphine Sulfate (Morphine) 2 mg IVP Q4 PRN PRN Reason: Pain, moderate (4-7) Last Admin: 06/26/18 05:50 Dose: 2 mg Ondansetron HCl (Zofran Inj) 4 mg IVP Q6 PRN PRN Reason: Nausea/Vomiting Last Admin: 06/26/18 08:27 Dose: 4 mg Pantoprazole Sodium (Protonix Inj) 40 mg IVP DAILY [facility] Last Admin: 06/29/18 09:26 Dose: 40 mg Rosuvastatin Calcium (Crestor) 5 mg PO HS [facility] Last Admin: 06/28/18 21:06 Dose: 5 mg - Labs Labs: 06/29/18 06:48 06/27/18 07:20 PT 12.5 SECONDS (9.7-12.2) H 06/25/18 22:36 INR 1.1 06/25/18 22:36 APTT 32 SECONDS (21-34) 06/25/18 22:36 - Constitutional Appears: Well, Non-toxic, Chronically Ill - Head Exam Head Exam: ATRAUMATIC, NORMAL INSPECTION - Eye Exam Eye Exam: EOMI, Normal appearance, PERRL Pupil Exam: NORMAL ACCOMODATION - ENT Exam ENT Exam: Mucous Membranes Moist, Normal Exam - Neck Exam Neck Exam: Normal Inspection - Respiratory Exam Respiratory Exam: Prolonged Expiratory Phase, Rhonchi. absent: Accessory Muscle Use, Chest Wall Tenderness, Rales, Wheezes - Cardiovascular Exam Cardiovascular Exam: REGULAR RHYTHM, +S1, +S2. absent: Murmur - GI/Abdominal Exam GI & Abdominal Exam: Soft, Normal Bowel Sounds. absent: Tenderness - Extremities Exam Extremities Exam: Full ROM, Normal Inspection. absent: Pedal Edema - Back Exam Back Exam: absent: CVA tenderness (L), CVA tenderness (R) - Neurological Exam Neurological Exam: Alert, Awake Assessment and Plan (1) Aspiration pneumonia Status: Acute (2) Opacity of lung on imaging study Status: Acute (3) Abdominal pain Status: Acute - Assessment and Plan (Free Text) Assessment: \ CXR 06/26/2018: The 2 to 3 mm mid right lung zone referenced nodular opacity is stable since 2017. No interval worrisome pathology suggested. - Continue IV antibiotics x 7 day with Azithromycin 500 mg IVPB Q24H [facility] Ceftriaxone Sodium 1 gm IVPB DAILY [facility] - f/u CXR repeat - Blood cultures x2 negative - Urine legionella antigen - Influenza A & B negative - Check urine legionella and pneumococcus/strep antigen - Check mycoplasma titer
--- NOTE | 2018-06-29 13:25 | NM ---
Date of service: 06/27/2018 PROCEDURE: Gastric emptying study HISTORY: Gastroparesis on CT scan COMPARISON: 06/26/2018 CT abdomen and pelvis. TECHNIQUE: 1 mCi technetium 99 M sulfur colloid administered orally with solid and liquid material per institutional protocol. FINDINGS: Commencement of examination: Percent emptied, solid 0% Percent residual, solid 100 % 1 hr: Percent emptied, solid 49 % Percent residual, solid 51 % 2 hr: Percent emptied, solid 96 % Percent residual, solid 4% 4 hr: Percent emptied, solid 98 % Percent residual, solid 2% IMPRESSION: Normal gastric emptying. Normal range percent empty 1 hr 0-63 % 2 hr 40-70 % 4 hr 90-100 % Normal range percent remaining 1 hr 37-90 % 2 hr 30-60 % 4 hr 0-10 %
--- NOTE | 2018-06-29 14:50 | CP.PCM.PN ---
Subjective - Date & Time of Evaluation Date of Evaluation: 06/29/18 Time of Evaluation: 11:40 - Subjective Subjective: patient seen today states feels better, denies any sob, chest pain, abdominal pain, N/V/D , tolerating diet s/p gastric emptying - normal gastric emptying VSS AND LABS REVIEWED- A FEBRILE wbc- 7.7 s/p EGD- mild gastritis , ( see full report foe details ) Objective - Vital Signs/Intake and Output Vital Signs (last 24 hours): Temp Pulse Resp BP Pulse Ox 98.3 F 71 18 174/76 H 95 06/29/18 07:00 06/29/18 07:00 06/29/18 07:00 06/29/18 07:00 06/29/18 07:00 Intake and Output: 06/29/18 06/29/18 06:59 18:59 Intake Total 570 Balance 570 - Medications Medications: Current Medications Dextrose (Dextrose 50% Inj) 0 ml IV STAT PRN; Protocol PRN Reason: Hypoglycemia Protocol Dextrose (Glutose 15) 0 gm PO ONCE PRN; Protocol PRN Reason: Hypoglycemia Protocol Folic Acid (Folic Acid) 1 mg PO DAILY [facility] Last Admin: 06/29/18 09:26 Dose: 1 mg Glucagon (Glucagen Diagnostic Kit) 0 mg IM STAT PRN; Protocol PRN Reason: Hypoglycemia Protocol Home Med (Rivastigmine [Exelon 13.3 Mg/24 Hr Patch]) 13.3 mg TD DAILY [facility] Last Admin: 06/29/18 10:12 Dose: 13.3 mg Azithromycin 500 mg/ Sodium (Chloride) 250 mls @ 250 mls/hr IVPB Q24H SANDRA; Protocol Last Admin: 06/29/18 05:25 Dose: 250 mls/hr Ceftriaxone Sodium 1 gm/ (Sodium Chloride) 100 mls @ 100 mls/hr IVPB DAILY [facility]; Protocol Last Admin: 06/29/18 10:10 Dose: 100 mls/hr Insulin Aspart (Novolog) 0 unit SC ACHS [facility]; Protocol Last Admin: 06/29/18 13:02 Dose: 2 units Losartan Potassium (Cozaar) 25 mg PO DAILY [facility] Last Admin: 06/29/18 09:26 Dose: 25 mg Memantine (Namenda) 10 mg PO BID [facility] Last Admin: 06/29/18 09:25 Dose: 10 mg Morphine Sulfate (Morphine) 2 mg IVP Q4 PRN PRN Reason: Pain, moderate (4-7) Last Admin: 06/26/18 05:50 Dose: 2 mg Ondansetron HCl (Zofran Inj) 4 mg IVP Q6 PRN PRN Reason: Nausea/Vomiting Last Admin: 06/26/18 08:27 Dose: 4 mg Pantoprazole Sodium (Protonix Ec Tab) 40 mg PO DAILY [facility] Rosuvastatin Calcium (Crestor) 5 mg PO HS SANDRA Last Admin: 06/28/18 21:06 Dose: 5 mg - Labs Labs: 06/29/18 06:48 06/27/18 07:20 PT 12.5 SECONDS (9.7-12.2) H 06/25/18 22:36 INR 1.1 06/25/18 22:36 APTT 32 SECONDS (21-34) 06/25/18 22:36 Assessment and Plan - Assessment and Plan (Free Text) Assessment: A/P 77 year old female with pmhx of , Dementia, HTN, Hypercholesterolemia, is admitted with abdominal pain associated with vomit and diarrhea Nausea, vomiting, diarrhea have resolved. s/p EGD- gastritis and gastric emptying - negative patient clinically improved with ivf and antibiotics all cultures are negative D/w Dr. riojas, cleared for discharge home today and f/u with PMD in 1 week RX e prescribed to patient pharmacy
[2018-06-30] MEDS ORDERED: Pantoprazole 40 mg EC Tab PO SCH (10:00)
--- NOTE | 2018-07-01 19:25 | CP.PCM.DIS ---
Provider - Provider Date of Admission: 06/26/18 05:24 Attending physician: Zafar Quan MD Consults: 06/26/18 05:58 Gastroenterology Consult Routine Comment: Consulting Provider: Keith Jonas Consulting Physician: Keith Jonas Reason for Consult: gastropharesis 06/26/18 06:01 Infectious Disease Consult Routine Comment: Consulting Provider: Shahzad Crenshaw Consulting Physician: Shahzad Crenshaw Reason for Consult: pnuemonia 06/26/18 06:14 Physician Consult Routine Comment: pneumonia Consulting Provider: Austin Mirza Consulting Physician: Austin Mirza Reason for Consult: pneumonia Additional Comments: 06/26/18 13:03 Physician Consult Routine Comment: Consulting Provider: Derek Medrano Jr. Consulting Physician: Derek Medrano Jr. Reason for Consult: appendicitis Time Spent in preparation of Discharge (in minutes): 35 Diagnosis - Discharge Diagnosis (1) Acute gastroenteritis Status: Acute (2) Gastritis Status: Acute (3) Abdominal pain Status: Acute (4) Aspiration pneumonia Status: Acute Hospital Course - Lab Results Lab Results: Micro Results 06/26/18 05:42 Blood-Venous Blood Culture - Final NO GROWTH AFTER 5 DAYS 06/26/18 05:42 Blood-Venous Blood Culture - Final NO GROWTH AFTER 5 DAYS 06/26/18 05:42 Blood-Venous Gram Stain - Final TEST NOT PERFORMED 06/27/18 08:28 Stool Stool Culture - Final NO SALMONELLA, SHIGELLA OR CAMPYLOBACTER ISOLATED. 06/27/18 08:34 Stool Ova and Parasite Concentrate Exam - Final Most Recent Lab Values WBC 7.7 K/uL (4.8-10.8) 06/29/18 06:48 RBC 4.23 Mil/uL (3.80-5.20) 06/29/18 06:48 Hgb 13.4 g/dL (11.0-16.0) 06/29/18 06:48 Hct 40.1 % (34.0-47.0) 06/29/18 06:48 MCV 94.7 fL (81.0-99.0) 06/29/18 06:48 MCH 31.6 pg (27.0-31.0) H 06/29/18 06:48 MCHC 33.4 g/dL (33.0-37.0) 06/29/18 06:48 RDW 13.5 % (11.5-14.5) 06/29/18 06:48 Plt Count 160 K/uL (130-400) 06/29/18 06:48 MPV 10.7 fL (7.2-11.7) 06/29/18 06:48 Neut % (Auto) 58.8 % (50.0-75.0) 06/29/18 06:48 Lymph % (Auto) 28.2 % (20.0-40.0) 06/29/18 06:48 [place] % (Auto) 9.5 % (0.0-10.0) 06/29/18 06:48 Eos % (Auto) 3.1 % (0.0-4.0) 06/29/18 06:48 Baso % (Auto) 0.4 % (0.0-2.0) 06/29/18 06:48 Neut # (Auto) 4.6 K/uL (1.8-7.0) 06/29/18 06:48 Lymph # (Auto) 2.2 K/uL (1.0-4.3) 06/29/18 06:48 [place] # (Auto) 0.7 K/uL (0.0-0.8) 06/29/18 06:48 Eos # (Auto) 0.2 K/uL (0.0-0.7) 06/29/18 06:48 Baso # (Auto) 0.0 K/uL (0.0-0.2) 06/29/18 06:48 PT 12.5 SECONDS (9.7-12.2) H 06/25/18 22:36 INR 1.1 06/25/18 22:36 APTT 32 SECONDS (21-34) 06/25/18 22:36 Sodium 139 mmol/L (132-148) 06/27/18 07:20 Potassium 4.0 mmol/L (3.6-5.2) 06/27/18 07:20 Chloride 108 mmol/L (98-107) H 06/27/18 07:20 Carbon Dioxide 25 mmol/L (22-30) 06/27/18 07:20 Anion Gap 10 (10-20) 06/27/18 07:20 BUN 10 mg/dL (7-17) 06/27/18 07:20 Creatinine 0.7 mg/dL (0.7-1.2) 06/27/18 07:20 Est GFR ( Amer) > 60 06/27/18 07:20 Est GFR (Non-Af Amer) > 60 06/27/18 07:20 POC Glucose (mg/dL) 110 mg/dL (65-110) 06/29/18 16:25 Random Glucose 117 mg/dL (65-105) H D 06/27/18 07:20 Calcium 8.6 mg/dl (8.6-10.4) 06/27/18 07:20 Total Bilirubin 0.5 mg/dL (0.2-1.3) 06/25/18 22:36 AST 35 U/L (14-36) 06/25/18 22:36 ALT 26 U/L (9-52) 06/25/18 22:36 Alkaline Phosphatase 68 U/L (38-126) 06/25/18 22:36 Total Protein 8.5 g/dL (6.3-8.3) H 06/25/18 22:36 Albumin 5.1 g/dL (3.5-5.0) H D 06/25/18 22:36 Globulin 3.4 gm/dL (2.2-3.9) 06/25/18 22:36 Albumin/Globulin Ratio 1.5 (1.0-2.1) 06/25/18 22:36 Lipase 75 U/L (23-300) 06/25/18 22:36 Urine Color Yellow (YELLOW) 06/25/18 23:51 Urine Clarity Clear (Clear) 06/25/18 23:51 Urine pH 5.0 (5.0-8.0) 06/25/18 23:51 Ur Specific Dora 1.012 (1.003-1.030) 06/25/18 23:51 Urine Protein Negative mg/dL (NEGATIVE) 06/25/18 23:51 Urine Glucose (UA) Normal mg/dL (Normal) 06/25/18 23:51 Urine Ketones Negative mg/dL (NEGATIVE) 06/25/18 23:51 Urine Blood Negative (NEGATIVE) 06/25/18 23:51 Urine Nitrate Negative (NEGATIVE) 06/25/18 23:51 Urine Bilirubin Negative (NEGATIVE) 06/25/18 23:51 Urine Urobilinogen Normal mg/dL (0.2-1.0) 06/25/18 23:51 Ur Leukocyte Esterase 2+ Anisa/uL (Negative) H 06/25/18 23:51 Urine WBC (Auto) 2 /hpf (0-5) 06/25/18 23:51 Urine RBC (Auto) 1 /hpf (0-3) 06/25/18 23:51 Ur Squamous Epith Cells < 1 /hpf (0-5) 06/25/18 23:51 Hyaline Casts 0-2 /lpf (0-2) 06/25/18 23:51 Stool Leukocytes, Qual Negative (NEGATIVE) 06/27/18 08:28 C. difficile Ag & Toxin Negative (NEGATIVE) 06/27/18 08:28 Giardia Antigen Not detected (Not Detected) 06/27/18 08:28 Influenza Typ A,B (EIA) Negative for flu a/b (NEGATIVE) 06/26/18 11:32 Ur L.pneumophila Ag Negative (NEGATIVE) 06/26/18 14:10 - Hospital Course Hospital Course: Patient admitted for abdominal pain, nausea, vomitting and diarrhea. Dr Mirza saw the pt for pulmonary nodule and aspiration pneumonia. Pt as empirically treated for Aspiration pneumonia with Rocephin and Zithromax IV as per ID(Dr Crenshaw). Septic w/u negative. Pt had EGD by Dr Jonas which revealed gastritis. Dr Medrano saw the patient and acute abdomen was ruled out. Pt did well with abtx and was discharged. Discharge Exam - Head Exam Head Exam: ATRAUMATIC, NORMAL INSPECTION - Eye Exam Eye Exam: absent: Scleral icterus Pupil Exam: PERRL - ENT Exam ENT Exam: Mucous Membranes Moist - Neck Exam Neck exam: Full Rom - Respiratory Exam Respiratory Exam: NORMAL BREATHING PATTERN - Cardiovascular Exam Cardiovascular Exam: REGULAR RHYTHM - GI/Abdominal Exam GI & Abdominal Exam: Normal Bowel Sounds, Soft - Extremities Exam Extremities exam: normal inspection - Neurological Exam Neurological exam: Alert, Oriented x3 Discharge Plan - Discharge Medications Prescriptions: Cane 1 each MC DAILY #1 each Levofloxacin [Levaquin] 500 mg PO DAILY #5 tablet Pantoprazole [Protonix EC Tab] 40 mg PO DAILY #15 ect - Follow Up Plan Condition: FAIR Disposition: HOME/ ROUTINE Instructions: Levofloxacin (Systemic), Nausea and Vomiting, Adult (DC), Aspiration Pneumonia (DC), Upper GI Endoscopy (DC), Gastroparesis (Delayed Gastric Emptying) (DC), Pantoprazole, Acute Abdominal Pain (DC), Acute Abdominal Pain (GEN) Additional Instructions: Please follow up with PMD / Dr. Sainz in 1 week Please continue home medications Por favor juliet un seguimiento con PMD / Dr. Sainz en 1 semana Por favor contine los medicamentos caseros.
== END 2018-06-29 17:20 | disposition home or self-care (01) | DRG 391 ==
LOC: C.ER 21:43 → C.9E 06-26 05:24 → C.6T 06-26 06:06
PROVIDERS: ADMIT Internal Medicine; ATTEND Internal Medicine
PROC: 0DB68ZX Excision of Stomach, Via Natural or Artificial Opening Endoscopic, Diagnostic (ICD-10-PCS; principal; 2018-06-26)
DX: K52.9 Noninfective gastroenteritis and colitis, unspecified (principal); J69.0 Pneumonitis due to inhalation of food and vomit; K56.7 Ileus, unspecified; K29.70 Gastritis, unspecified, without bleeding; G30.9 Alzheimer's disease, unspecified; F02.80 Dementia in other diseases classified elsewhere, unspecified severity, without behavioral disturbance, psychotic disturbance, mood disturbance, and anxiety; E78.5 Hyperlipidemia, unspecified; E11.43 Type 2 diabetes mellitus with diabetic autonomic (poly)neuropathy; I10 Essential (primary) hypertension; K31.84 Gastroparesis

== ENCOUNTER 2018-09-10 08:43 | Outpatient (CLI) | payer MEDICARE, MEDICAID | END 2018-09-10 08:44 | disposition home or self-care (01) | LOC: C.NUCMED 08:43 ==